=== PATIENT | female | born 1960 | race Caucasian/White ===

== ENCOUNTER 2016-03-20 04:38 | Emergency (ER) | payer MEDICARE, MEDICAID ==
[~2016-03-20 04:38] MED LIST: /ESCI20TA; /GLIM4TA; /WARF5TA; ACET500C; ACET50TAOT PO; AZOP0.2S OU; BONI150T PO; BONIVA; BUSP30TA; CALC12502; CLAR5CHW; COUM10TA; COUM1TAB17 PO; FERR325T; FERR325T3 PO; FLUO20CA9 PO; FURO40TA2 PO; GLIM4TAB PO; JANU100T PO; LASI40TA; LEVO112T25 PO; METF500T PO; METF500T4; PATA0.2S; PATA0.2S OU; RISP1TAB3 PO; SYNT88TA; TIMO0.5S; TIMO5OPD OU; TRAZ150T; VITA50003 PO; ZOCO20TA; ZOCO20TA PO; oxycodone
[2016-03-20 06:48] LABS: INR 1.58
[2016-03-20 06:51] LABS: CALCIUM LEVEL 9.2 MG/DL (8.5-10.1); CREATININE FOR GFR 1.18 MG/DL (0.55-1.02); GLOMERULAR FILTRATION RATE 50.1 (>51); POTASSIUM SERUM 4.3 MEQ/L (3.5-5.1)
[2016-03-20] MEDS ORDERED: FUROSEMIDE 20 MG TAB As Ordered ONE (08:03)
--- NOTE | 2016-03-20 08:31 | EDDOCDS ---
Physician Documentation [facility] Name: Shirley Martins Age: 56 yrs Sex: Female : 1960 Arrival Date: 03/20/2016 Time: 04:38 Bed 12 Private MD: Disposition: 03/20/16 08:04 Discharged to Home/Self Care. Impression: Edema, unspecified - Lower Extremities. - Condition is Stable. - Discharge Instructions: Edema. - Medication Reconciliation, Local Pharmacy Hours form. - Follow up: Sabino Parikh MD; When: 4 - 5 days; Reason: Recheck today's complaints. - Problem is new. - Symptoms are unchanged. - Notes: You were seen in the ED for swelling in the lower extremities. Bloodwork and ultrasound showed no acute findings. You were treated with a medicine to help get rid of excess fluid, and may follow up with your physician on Sunday for further care. Keep the legs elevated and wear compression stockings as well. Return to the ED for any chest pain, shortness of breath, passing out, or any other concerns. Historical: - Allergies: SULFA (SULFONAMIDES) (Rash); alfagon eye drops (eyes get red and itch); travatan eye drops (Swelling, eyes itch); - Home Meds: 1. warfarin 5mg daily accept is 7mg Oral tab 1 tab once daily (Last dose: 03/19/2016) 2. levothyroxine 112 mcg Oral tab 1 tab once daily (Last dose: 03/19/2016) 3. Risperdal 1 mg Oral tab 2 times per day (Last dose: 03/19/2016) 4. fluoxetine 20 mg oral cap 3 caps once daily (Last dose: 03/19/2016) 5. trazodone 100 mg Oral tab 2 tabs nightly (Last dose: 03/19/2016) 6. ferrous sulfate 325 mg (65 mg iron) Oral TbEC daily (Last dose: 03/19/2016) 7. vit d 27815 u weekly 8. Zocor 20 mg Oral tab 1 tab nightly (Last dose: 03/19/2016) 9. timolol maleate 0.5 % Opht drpd 1 drop 2 times per day 10. calcium 1000 mh 11. Patanol 0.1 % Opht drop 1 drop 2 times per day 12. magnesium oxide 500 mg Oral cap daily 13. Flomax 0.4 mg Oral cp24 1 cap once daily 14. Boniva 150 mg oral tab 1 tab once moly 15. potassium citrate er 10 meq twice a day - PMHx: Depression; Diabetes - IDDM: controlled; Hypercholesterolemia; low iron; Thyroid problem; - PSHx: wrist surgery for fracture; Appendectomy; Tonsillectomy; - Social history: Smoking status: Patient states was never smoker of tobacco. No barriers to communication noted, The patient speaks fluent Icelandic, Speaks appropriately for age. - Family history: Not pertinent. - : The pt / caregiver states he / she is on anticoagulants: coumadin. Home medication list is obtained from the patient, [employer] import data. - Exposure Risk Screening:: None identified. Vital Signs: 03/20 04:55 BP 148 / 73; Pulse 58; Resp 18; Temp 97.1(O); Pulse Ox 95% ; Weight 125.65 kg / 277.01 kmg1 lbs (R); Height 5 ft. 3 in. (160.02 cm) (R); Pain 4/10; 08:29 BP 163 / 70; Pulse 66; Resp 16; Temp 97.8; jmk 04:55 Body Mass Index 49.07 (125.65 kg, 160.02 cm) kmg1 MDM: 06:27 BMP Ordered. EDMS 06:27 PT/INR Ordered. EDMS 06:54 BMP Reviewed. mm11 06:54 PT/INR Reviewed. mm11 07:34 Duplex, Ext LOWER veins, bilat Ordered. EDMS 07:55 Financial registration complete. mm15 08:02 Furosemide 40 mg PO once ordered. br1 08:24 [facility] Payment Agreement was scanned into [employer] and attached to record. mm15 Administered Medications: 08:05 Drug: Furosemide 40 mg [furosemide 20 mg tablet (2 tabs)] Route: PO; chyna Signatures: Dispatcher [employer] EDMS Nisha Perez RN RN kmg1 Steve Dean RN RN jmk Maynard, Matthew, DO DO mm11 Jean Paul Cardoso MD MD br1 Patrick Oviedo mm15 Brynn Hope RN RN mlc The chart was reviewed and I authenticate all verbal orders and agree with the evaluation and treatment provided.Corrections: (The following items were deleted from the chart) 07:34 06:27 Duplex, Ext,LOWER veins,unilat+US ordered. EDMS EDMS Attachments: 08:24 [facility] [place] Payment Agreement mm15 MTDD
--- NOTE | 2016-03-20 08:32 | EDDOCDS ---
Nurse's Notes [facility] Name: Shirley Martins Age: 56 yrs Sex: Female : 1960 Arrival Date: 03/20/2016 Time: 04:38 Bed 12 Private MD: Diagnosis: Edema, unspecified-Lower Extremities Presentation: 03/20 04:42 Presenting complaint: Patient states: Legs and feet are swollen and sore. Swelling kmg1 started 3 weeks ago and pain began this week. Appointment with PCP this Sunday. Suicide/Homicide risk assessment- the patient denies having any suicidal and/or homicidal ideations and does not present with any other emotional, behavioral or mental health complaints. Status: Patient is not a customer services supervisor or dependent. Transition of care: patient was not received from another setting of care. 04:42 Acuity: JANET Level 4 km 04:42 Method Of Arrival: Walkin/Carried/Asstd km Triage Assessment: 04:55 General: Appears in no apparent distress, comfortable, Behavior is appropriate for age, kmg1 cooperative, pleasant. Pain: Location: right lane and left lane Pain currently is 4 out of 10 on a pain scale. At worst was 8 out of 10 on a pain scale. Quality of pain is described as aching, dull. HIV screening NA for this visit Offered previously. Neurological: Level of Consciousness is awake, alert. Respiratory: Airway is patent Respiratory effort is even, unlabored, Respiratory pattern is regular, symmetrical. Historical: - Allergies: SULFA (SULFONAMIDES) (Rash); alfagon eye drops (eyes get red and itch); travatan eye drops (Swelling, eyes itch); - Home Meds: 1. warfarin 5mg daily accept is 7mg Oral tab 1 tab once daily (Last dose: 03/19/2016) 2. levothyroxine 112 mcg Oral tab 1 tab once daily (Last dose: 03/19/2016) 3. Risperdal 1 mg Oral tab 2 times per day (Last dose: 03/19/2016) 4. fluoxetine 20 mg oral cap 3 caps once daily (Last dose: 03/19/2016) 5. trazodone 100 mg Oral tab 2 tabs nightly (Last dose: 03/19/2016) 6. ferrous sulfate 325 mg (65 mg iron) Oral TbEC daily (Last dose: 03/19/2016) 7. vit d 41645 u weekly 8. Zocor 20 mg Oral tab 1 tab nightly (Last dose: 03/19/2016) 9. timolol maleate 0.5 % Opht drpd 1 drop 2 times per day 10. calcium 1000 mh 11. Patanol 0.1 % Opht drop 1 drop 2 times per day 12. magnesium oxide 500 mg Oral cap daily 13. Flomax 0.4 mg Oral cp24 1 cap once daily 14. Boniva 150 mg oral tab 1 tab once moly 15. potassium citrate er 10 meq twice a day - PMHx: Depression; Diabetes - IDDM: controlled; Hypercholesterolemia; low iron; Thyroid problem; - PSHx: wrist surgery for fracture; Appendectomy; Tonsillectomy; - Social history: Smoking status: Patient states was never smoker of tobacco. No barriers to communication noted, The patient speaks fluent Romanian, Speaks appropriately for age. - Family history: Not pertinent. - : The pt / caregiver states he / she is on anticoagulants: coumadin. Home medication list is obtained from the patient, [employer] import data. - Exposure Risk Screening:: None identified. Screenin:41 Screening information is obtained from the patient. Fall risk: No risks identified. mlc 05:45 Assistance ADL's: requires no assistance with activities of daily living. Abuse/DV mlc Screen: The patient / caregiver reports he/she is: not in a situation that causes fear, pain or injury. Nutritional screening: No deficits noted. Advance Directives: Currently, there is a health care proxy, Francesca Martins, brother and Miriam Morse, sister. There is no active DNR order. There is no living will. There is no Power of Junior Account Manager. home support is adequate. Assessment: 05:41 General: Appears in no apparent distress, comfortable, Behavior is cooperative, mlc pleasant. Pain: Location: right foot, left foot, right leg and left leg Pain currently is 4 out of 10 on a pain scale. Neurological: Level of Consciousness is awake, obeys commands, Oriented to person, place, time. Cardiovascular: Heart tones S1 S2 present. Cardiovascular: Edema is 2+ to left midcalf, left ankle, right midcalf and right ankle Pulses are all present. Respiratory: Airway is patent Respiratory effort is even, unlabored, Respiratory pattern is regular, Breath sounds are clear bilaterally. Derm:. 06:33 Reassessment: Patient appears in no apparent distress at this time. Blood work obtained [facility] [place] . 07:24 General: Appears Appears NAD. returned from ultrasound. ambulating about room with jmk steady gait. both lower legs with swelling to mid calf. without redness or ecchymosis or increased warmth. reluctantly admits to sitting for long periods of time., and consuming diet pepsi as beverage of choice.. 08:29 General: tolerant of activity. receptive to discharge. [facility] Vital Signs: 04:55 BP 148 / 73; Pulse 58; Resp 18; Temp 97.1(O); Pulse Ox 95% ; Weight 125.65 kg (R); [facility] Height 5 ft. 3 in. (160.02 cm) (R); Pain 4/10; 08:29 BP 163 / 70; Pulse 66; Resp 16; Temp 97.8; jmk 04:55 Body Mass Index 49.07 (125.65 kg, 160.02 cm) [facility] Vitals: 04:55 Log In Time: March 20, 2016 at 04:37. [facility] ED Course: 04:39 Patient visited by Dee Duncan. gjb 04:39 Patient moved to Waiting gjb 04:43 Triage Initiated kmg1 05:02 Brynn Hope RN is Primary Nurse. kmg1 05:02 Patient moved to 12 km 05:43 Patient visited by Brynn Hope RN. mlc 06:09 Milind Flood DO is Attending Physician. mm11 06:10 Patient visited by Milind Flood DO. mm11 06:25 Patient visited by Milind Flood DO. mm11 06:33 Patient visited by Brynn Hope RN. mlc 06:33 PT/INR Sent. mlc 06:33 BMP Sent. mlc 06:57 Patient moved to Ultrasound ssc 07:23 Primary Nurse role handed off by Brynn Hope RN deg 07:23 Patient moved to 12 ssc 07:54 Patient visited by Ruby Haddad PCA. ct3 07:59 Attending Physician role handed off by Milind Flood DO br1 07:59 Jean Paul Cardoso MD is Attending Physician. br1 08:01 Patient visited by Jean Paul Cardoso MD. br1 08:03 Sabino Parikh MD is Referral Physician. br1 08:24 [facility] [place] Payment Agreement was scanned into [employer] and attached to record. mm15 08:29 The patient / caregiver is instructed regarding the plan of care and ED course. jmk 08:29 No IV's were initiated during this patient's visit. No procedures done that require [facility] assistance. Administered Medications: 08:05 Drug: Furosemide 40 mg [furosemide 20 mg tablet (2 tabs)] Route: PO; k Order Results: Lab Order: BMP; SPEC'M 03/20/16 06:29 Test: GLUCOSE, FASTING; Value: 144; Range: 70-105; Abnormal: Above high normal; Units: MG/DL; Status: F Test: BLOOD UREA NITROGEN; Value: 15; Range: 7-18; Units: MG/DL; Status: F Test: CREATININE FOR GFR; Value: 1.18; Range: 0.55-1.02; Abnormal: Above high normal; Units: MG/DL; Status: F Test: GLOMERULAR FILTRATION RATE; Value: 50.1; Range: >51; Abnormal: Below low normal; Status: F Test: SODIUM LEVEL; Value: 143; Range: 136-145; Units: MEQ/L; Status: F Test: POTASSIUM SERUM; Value: 4.3; Range: 3.5-5.1; Units: MEQ/L; Status: F Test: CHLORIDE LEVEL; Value: 105; Range: 98-107; Units: MEQ/L; Status: F Test: CARBON DIOXIDE LEVEL; Value: 29; Range: 21-32; Units: MEQ/L; Status: F Test: ANION GAP; Value: 9; Range: 8-16; Units: MEQ/L; Status: F Test: CALCIUM LEVEL; Value: 9.2; Range: 8.5-10.1; Units: MG/DL; Status: F Test Note: ; Units are mL/min/1.73 m2 Chronic Kidney Disease Staging per NKF: Stage I & II GFR >=60 Normal to Mildly Decreased Stage III GFR 30-59 Moderately Decreased Stage IV GFR 15-29 Severely Decreased Stage V GFR <15 Very Little GFR Left ESRD GFR <15 on [employer] Lab Order: PT/INR; SPEC'M 01/09/17 06:29 Test: PROTHROMBIN TIME; Value: 19.0; Range: 12.3-14.5; Abnormal: Above high normal; Units: SECONDS; Status: F Test: INR; Value: 1.58; Status: F Test Note: ; THERAPUTIC HUMAN INR VALUES INDICATIONS NORMAL RANGES PROPHYLAXIS/TREATMENT OF: VENOUS THROMBOSIS 2.0-3.0 PULMONARY EMBOLISM 2.0-3.0 PREVENTION OF SYSTEMIC EMBOLISM FROM: TISSUE HEART VALVES 2.0-3.0 ACUTE MYOCARDIAL INFARCTION 2.0-3.0 VALVULAR HEART DISEASE 2.0-3.0 ATRIAL FIBRILLATION 2.0-3.0 MECHANICAL VALVES(HIGH RISK) 2.5-3.5 RECURRENT MYOCARDIAL INFARCTION 2.5-3.5 Outcome: 08:04 Discharge ordered by Provider. br1 08:29 Discharge Assessment: Patient awake, alert and oriented x 3. No cognitive and/or jmk functional deficits noted. Patient verbalized understanding of disposition instructions. patient administered narcotics - no. The following High Risk Discharge criteria are identified: None. Discharged to home ambulatory. Condition: good. Discharge instructions given to patient, Instructed on discharge instructions, follow up and referral plans. medication usage, Demonstrated understanding of instructions, medications, Pt was receptive of discharge instructions/ teaching. No special radiology studies were completed. Property :Personal belongings accompany Pt. 08:31 Patient left the ED. chyna Signatures: Ella Castellon, Creative Technologist Unit deg Nisha Perez, RN RN kmg1 Steve Dean,RN RN gladisk Zhang Baca Matthew, DO DO mm11 Jean Paul Cardoso MD MD br1 Ruby Haddad, WANDA PROFESSOR OF LEGAL STUDIES ct3 Patrick Oviedo mm15 Brynn Hope,SUE RN Dee Lnae MTDD
--- NOTE | 2016-03-20 09:18 | REP ---
BILATERAL LOWER EXTREMITY VENOUS DOPPLER 03/20/16: INDICATION: Bilateral leg pain, history of DVT, on Coumadin COMPARISON: Left lower extremity venous Doppler 09/27/2006 RIGHT LOWER EXTREMITY FINDINGS: Color-flow, spectral wave, and sanders scale imaging were used to evaluate the right lower extremity veins at common femoral, superficial femoral and popliteal venous levels. There is normal compressibility of veins at the above stated levels. There is normal response to augmentation of flow. The profunda femoris vein is also patent. IMPRESSION: No evidence of DVT in the right lower extremity. LEFT LOWER EXTREMITY VENOUS DOPPLER: Color-flow, spectral wave, and sanders scale imaging were used to evaluate the lower extremity veins at common femoral, superficial femoral and popliteal venous levels. There is normal compressibility of veins at the above stated levels. There is normal response to augmentation of flow. The profunda femoris vein is also patent. IMPRESSION: No evidence of DVT in the left lower extremity. Signed by Maria R Early MD 03/20/2016 05:15 P
--- NOTE | 2016-03-22 09:32 | EDDOCDS ---
Nurse's Notes [facility] Name: Shirley Martins Age: 56 yrs Sex: Female : 1960 Arrival Date: 03/20/2016 Time: 04:38 Bed 12 Private MD: Diagnosis: Edema, unspecified-Lower Extremities Presentation: 03/20 04:42 Presenting complaint: Patient states: Legs and feet are swollen and sore. Swelling kmg1 started 3 weeks ago and pain began this week. Appointment with PCP this Sunday. Suicide/Homicide risk assessment- the patient denies having any suicidal and/or homicidal ideations and does not present with any other emotional, behavioral or mental health complaints. Status: Patient is not a therapeutic activities services worker or dependent. Transition of care: patient was not received from another setting of care. 04:42 Acuity: JANET Level 4 km 04:42 Method Of Arrival: Walkin/Carried/Asstd km Triage Assessment: 04:55 General: Appears in no apparent distress, comfortable, Behavior is appropriate for age, kmg1 cooperative, pleasant. Pain: Location: right lane and left lane Pain currently is 4 out of 10 on a pain scale. At worst was 8 out of 10 on a pain scale. Quality of pain is described as aching, dull. HIV screening NA for this visit Offered previously. Neurological: Level of Consciousness is awake, alert. Respiratory: Airway is patent Respiratory effort is even, unlabored, Respiratory pattern is regular, symmetrical. Historical: - Allergies: SULFA (SULFONAMIDES) (Rash); alfagon eye drops (eyes get red and itch); travatan eye drops (Swelling, eyes itch); - Home Meds: 1. warfarin 5mg daily accept is 7mg Oral tab 1 tab once daily (Last dose: 03/19/2016) 2. levothyroxine 112 mcg Oral tab 1 tab once daily (Last dose: 03/19/2016) 3. Risperdal 1 mg Oral tab 2 times per day (Last dose: 03/19/2016) 4. fluoxetine 20 mg oral cap 3 caps once daily (Last dose: 03/19/2016) 5. trazodone 100 mg Oral tab 2 tabs nightly (Last dose: 03/19/2016) 6. ferrous sulfate 325 mg (65 mg iron) Oral TbEC daily (Last dose: 03/19/2016) 7. vit d 23759 u weekly 8. Zocor 20 mg Oral tab 1 tab nightly (Last dose: 03/19/2016) 9. timolol maleate 0.5 % Opht drpd 1 drop 2 times per day 10. calcium 1000 mh 11. Patanol 0.1 % Opht drop 1 drop 2 times per day 12. magnesium oxide 500 mg Oral cap daily 13. Flomax 0.4 mg Oral cp24 1 cap once daily 14. Boniva 150 mg oral tab 1 tab once moly 15. potassium citrate er 10 meq twice a day - PMHx: Depression; Diabetes - IDDM: controlled; Hypercholesterolemia; low iron; Thyroid problem; - PSHx: wrist surgery for fracture; Appendectomy; Tonsillectomy; - Social history: Smoking status: Patient states was never smoker of tobacco. No barriers to communication noted, The patient speaks fluent Belgian, Speaks appropriately for age. - Family history: Not pertinent. - : The pt / caregiver states he / she is on anticoagulants: coumadin. Home medication list is obtained from the patient, [employer] import data. - Exposure Risk Screening:: None identified. Screenin:41 Screening information is obtained from the patient. Fall risk: No risks identified. mlc 05:45 Assistance ADL's: requires no assistance with activities of daily living. Abuse/DV mlc Screen: The patient / caregiver reports he/she is: not in a situation that causes fear, pain or injury. Nutritional screening: No deficits noted. Advance Directives: Currently, there is a health care proxy, Francesca Martins, brother and Miriam Morse, sister. There is no active DNR order. There is no living will. There is no Power of Director Of Materials Management. home support is adequate. Assessment: 05:41 General: Appears in no apparent distress, comfortable, Behavior is cooperative, mlc pleasant. Pain: Location: right foot, left foot, right leg and left leg Pain currently is 4 out of 10 on a pain scale. Neurological: Level of Consciousness is awake, obeys commands, Oriented to person, place, time. Cardiovascular: Heart tones S1 S2 present. Cardiovascular: Edema is 2+ to left midcalf, left ankle, right midcalf and right ankle Pulses are all present. Respiratory: Airway is patent Respiratory effort is even, unlabored, Respiratory pattern is regular, Breath sounds are clear bilaterally. Derm:. 06:33 Reassessment: Patient appears in no apparent distress at this time. Blood work obtained [facility] . 07:24 General: Appears Appears NAD. returned from ultrasound. ambulating about room with jmk steady gait. both lower legs with swelling to mid calf. without redness or ecchymosis or increased warmth. reluctantly admits to sitting for long periods of time., and consuming diet pepsi as beverage of choice.. 08:29 General: tolerant of activity. receptive to discharge. [facility] Vital Signs: 04:55 BP 148 / 73; Pulse 58; Resp 18; Temp 97.1(O); Pulse Ox 95% ; Weight 125.65 kg (R); [facility] [place] 5 ft. 3 in. (160.02 cm) (R); Pain 4/10; 08:29 BP 163 / 70; Pulse 66; Resp 16; Temp 97.8; jmk 04:55 Body Mass Index 49.07 (125.65 kg, 160.02 cm) [facility] Vitals: 04:55 Log In Time: March 20, 2016 at 04:37. [facility] [place] Course: 04:39 Patient visited by Dee Duncan. gjb 04:39 Patient moved to Waiting gjb 04:43 Triage Initiated kmg1 05:02 Brynn Hope RN is Primary Nurse. kmg1 05:02 Patient moved to 12 km 05:43 Patient visited by Brynn Hope RN. mlc 06:09 Milind Flood DO is Attending Physician. mm11 06:10 Patient visited by Milind Flood DO. mm11 06:25 Patient visited by Milind Flood DO. mm11 06:33 Patient visited by Brynn Hope RN. mlc 06:33 PT/INR Sent. mlc 06:33 BMP Sent. mlc 06:57 Patient moved to Ultrasound ssc 07:23 Primary Nurse role handed off by Brynn Hope RN deg 07:23 Patient moved to 12 ssc 07:54 Patient visited by Ruby Haddad PCA. ct3 07:59 Attending Physician role handed off by Milind Flood DO br1 07:59 Jean Paul Cardoso MD is Attending Physician. br1 08:01 Patient visited by Jean Paul Cardoso MD. br1 08:03 Sabino Parikh MD is Referral Physician. br1 08:24 [facility] [place] was scanned into [employer] and attached to record. mm15 08:29 The patient / caregiver is instructed regarding the plan of care and ED course. jmk 08:29 No IV's were initiated during this patient's visit. No procedures done that require k assistance. 08:52 Patient name changed from Shirley\S\\S\Martins\S\ to Shirley\S\ \S\Martins. EDMS 09:23 Duplex, Ext LOWER veins, bilat Returned. EDMS 13:11 T-Sheet-- Draft Copy was scanned into [employer] and attached to record. gb 13:12 Radiology Report was scanned into [employer] and attached to record. gb Administered Medications: 08:05 Drug: Furosemide 40 mg [furosemide 20 mg tablet (2 tabs)] Route: PO; jmk Order Results: Lab Order: BMP; SPEC'M 03/20/16 06:29 Test: GLUCOSE, FASTING; Value: 144; Range: 70-105; Abnormal: Above high normal; Units: MG/DL; Status: F Test: BLOOD UREA NITROGEN; Value: 15; Range: 7-18; Units: MG/DL; Status: F Test: CREATININE FOR GFR; Value: 1.18; Range: 0.55-1.02; Abnormal: Above high normal; Units: MG/DL; Status: F Test: GLOMERULAR FILTRATION RATE; Value: 50.1; Range: >51; Abnormal: Below low normal; Status: F Test: SODIUM LEVEL; Value: 143; Range: 136-145; Units: MEQ/L; Status: F Test: POTASSIUM SERUM; Value: 4.3; Range: 3.5-5.1; Units: MEQ/L; Status: F Test: CHLORIDE LEVEL; Value: 105; Range: 98-107; Units: MEQ/L; Status: F Test: CARBON DIOXIDE LEVEL; Value: 29; Range: 21-32; Units: MEQ/L; Status: F Test: ANION GAP; Value: 9; Range: 8-16; Units: MEQ/L; Status: F Test: CALCIUM LEVEL; Value: 9.2; Range: 8.5-10.1; Units: MG/DL; Status: F Test Note: ; Units are mL/min/1.73 m2 Chronic Kidney Disease Staging per NKF: Stage I & II GFR >=60 Normal to Mildly Decreased Stage III GFR 30-59 Moderately Decreased Stage IV GFR 15-29 Severely Decreased Stage V GFR <15 Very Little GFR Left ESRD GFR <15 on CLINICAL PHARMACY MANAGER Lab Order: PT/INR; SPEC'M 03/20/16 06:29 Test: PROTHROMBIN TIME; Value: 19.0; Range: 12.3-14.5; Abnormal: Above high normal; Units: SECONDS; Status: F Test: INR; Value: 1.58; Status: F Test Note: ; THERAPUTIC HUMAN INR VALUES INDICATIONS NORMAL RANGES PROPHYLAXIS/TREATMENT OF: VENOUS THROMBOSIS 2.0-3.0 PULMONARY EMBOLISM 2.0-3.0 PREVENTION OF SYSTEMIC EMBOLISM FROM: TISSUE HEART VALVES 2.0-3.0 ACUTE MYOCARDIAL INFARCTION 2.0-3.0 VALVULAR HEART DISEASE 2.0-3.0 ATRIAL FIBRILLATION 2.0-3.0 MECHANICAL VALVES(HIGH RISK) 2.5-3.5 RECURRENT MYOCARDIAL INFARCTION 2.5-3.5 Radiology Order: Duplex, Ext LOWER veins, bilat Test: Duplex, Ext LOWER veins, bilat REASON FOR EXAMINATION: Deformity/Swelling; BILATERAL LOWER EXTREMITY VENOUS DOPPLER 03/20/16:; ; INDICATION: Bilateral leg pain, history of DVT, on Coumadin; ; COMPARISON: Left lower extremity venous Doppler 09/27/2006; ; RIGHT LOWER EXTREMITY FINDINGS:; ; Color-flow, spectral wave, and sanders scale imaging were used to evaluate the right; lower extremity veins at common femoral, superficial femoral and popliteal; venous levels. There is normal compressibility of veins at the above stated; levels. There is normal response to augmentation of flow. The profunda femoris; vein is also patent.; ; IMPRESSION:; ; No evidence of DVT in the right lower extremity.; ; ; ; LEFT LOWER EXTREMITY VENOUS DOPPLER:; ; Color-flow, spectral wave, and sanders scale imaging were used to evaluate the lower; extremity veins at common femoral, superficial femoral and popliteal venous; levels. There is normal compressibility of veins at the above stated levels.; There is normal response to augmentation of flow. The profunda femoris vein is; also patent.; ; IMPRESSION:; ; No evidence of DVT in the left lower extremity.; ; ; ; ; Signed by; Maria R Early MD 03/20/2016 05:15 P; Outcome: 08:04 Discharge ordered by Provider. br1 08:29 Discharge Assessment: Patient awake, alert and oriented x 3. No cognitive and/or jmk functional deficits noted. Patient verbalized understanding of disposition instructions. patient administered narcotics - no. The following High Risk Discharge criteria are identified: None. Discharged to home ambulatory. Condition: good. Discharge instructions given to patient, Instructed on discharge instructions, follow up and referral plans. medication usage, Demonstrated understanding of instructions, medications, Pt was receptive of discharge instructions/ teaching. No special radiology studies were completed. Property :Personal belongings accompany Pt. 08:31 Patient left the ED. chyna Signatures: Dispatcher [employer] EDMS Ella Castellon, Reference Data Expert Unit deg Nisha Perez, RN RN kmg1 Steve DeanRN RN jmk Zhang Baca Gloria, Reg Reg gb Milind Flood, DO mm11 Jean Paul Cardoso MD MD br1 Ruby Haddad, WANDA MICROFILM CLERK ct3 Patrick Oviedo mm15 Brynn Hope,SUE RN Dee Lane Chart Complete MTDD
--- NOTE | 2016-03-22 09:32 | EDDOCDS ---
Physician Documentation [facility] Name: Shirley Martins Age: 56 yrs Sex: Female : 1960 Arrival Date: 03/20/2016 Time: 04:38 Bed 12 Private MD: Disposition: 03/20/16 08:04 Discharged to Home/Self Care. Impression: Edema, unspecified - Lower Extremities. - Condition is Stable. - Discharge Instructions: Edema. - Medication Reconciliation, Local Pharmacy Hours form. - Follow up: Sabino Parikh MD; When: 4 - 5 days; Reason: Recheck today's complaints. - Problem is new. - Symptoms are unchanged. - Notes: You were seen in the ED for swelling in the lower extremities. Bloodwork and ultrasound showed no acute findings. You were treated with a medicine to help get rid of excess fluid, and may follow up with your physician on Sunday for further care. Keep the legs elevated and wear compression stockings as well. Return to the ED for any chest pain, shortness of breath, passing out, or any other concerns. Historical: - Allergies: SULFA (SULFONAMIDES) (Rash); alfagon eye drops (eyes get red and itch); travatan eye drops (Swelling, eyes itch); - Home Meds: 1. warfarin 5mg daily accept is 7mg Oral tab 1 tab once daily (Last dose: 03/19/2016) 2. levothyroxine 112 mcg Oral tab 1 tab once daily (Last dose: 03/19/2016) 3. Risperdal 1 mg Oral tab 2 times per day (Last dose: 03/19/2016) 4. fluoxetine 20 mg oral cap 3 caps once daily (Last dose: 03/19/2016) 5. trazodone 100 mg Oral tab 2 tabs nightly (Last dose: 03/19/2016) 6. ferrous sulfate 325 mg (65 mg iron) Oral TbEC daily (Last dose: 03/19/2016) 7. vit d 14786 u weekly 8. Zocor 20 mg Oral tab 1 tab nightly (Last dose: 03/19/2016) 9. timolol maleate 0.5 % Opht drpd 1 drop 2 times per day 10. calcium 1000 mh 11. Patanol 0.1 % Opht drop 1 drop 2 times per day 12. magnesium oxide 500 mg Oral cap daily 13. Flomax 0.4 mg Oral cp24 1 cap once daily 14. Boniva 150 mg oral tab 1 tab once moly 15. potassium citrate er 10 meq twice a day - PMHx: Depression; Diabetes - IDDM: controlled; Hypercholesterolemia; low iron; Thyroid problem; - PSHx: wrist surgery for fracture; Appendectomy; Tonsillectomy; - Social history: Smoking status: Patient states was never smoker of tobacco. No barriers to communication noted, The patient speaks fluent Slovenian, Speaks appropriately for age. - Family history: Not pertinent. - : The pt / caregiver states he / she is on anticoagulants: coumadin. Home medication list is obtained from the patient, [employer] import data. - Exposure Risk Screening:: None identified. Vital Signs: 03/20 04:55 BP 148 / 73; Pulse 58; Resp 18; Temp 97.1(O); Pulse Ox 95% ; Weight 125.65 kg / 277.01 kmg1 lbs (R); Height 5 ft. 3 in. (160.02 cm) (R); Pain 4/10; 08:29 BP 163 / 70; Pulse 66; Resp 16; Temp 97.8; jmk 04:55 Body Mass Index 49.07 (125.65 kg, 160.02 cm) kmg1 MDM: 06:27 BMP Ordered. EDMS 06:27 PT/INR Ordered. EDMS 06:54 BMP Reviewed. mm11 06:54 PT/INR Reviewed. mm11 07:34 Duplex, Ext LOWER veins, bilat Ordered. EDMS 07:55 Financial registration complete. mm15 08:02 Furosemide 40 mg PO once ordered. br1 08:24 [facility] Payment Agreement was scanned into [employer] and attached to record. mm15 13:11 T-Sheet-- Draft Copy was scanned into [employer] and attached to record. gb 13:12 Radiology Report was scanned into [employer] and attached to record. gb Administered Medications: 08:05 Drug: Furosemide 40 mg [furosemide 20 mg tablet (2 tabs)] Route: PO; chyna Signatures: Dispatcher [employer] EDMS Nisha Perez RN RN kmg1 Steve Dean RN RN gladisk Carlie Covington, Reg Reg gb Milind Flood, DO DO mm11 Jean Paul Cardoso MD MD br1 Patrick Oviedo mm15 Brynn Hope,RN RN mlc The chart was reviewed and I authenticate all verbal orders and agree with the evaluation and treatment provided.Corrections: (The following items were deleted from the chart) 07:34 06:27 Duplex, Ext,LOWER veins,unilat+US ordered. EDMS EDMS Attachments: 08:24 [place] Payment Agreement mm15 13:11 T-Sheet-- Draft Copy gb Chart Complete MTDD
--- NOTE | 2016-03-22 09:32 | EDDOCDS ---
Physician Documentation [facility] Name: Shirley Martins Age: 56 yrs Sex: Female : 1960 Arrival Date: 03/20/2016 Time: 04:38 Bed 12 Private MD: Disposition: 03/20/16 08:04 Discharged to Home/Self Care. Impression: Edema, unspecified - Lower Extremities. - Condition is Stable. - Discharge Instructions: Edema. - Medication Reconciliation, Local Pharmacy Hours form. - Follow up: Sabino Parikh MD; When: 4 - 5 days; Reason: Recheck today's complaints. - Problem is new. - Symptoms are unchanged. - Notes: You were seen in the ED for swelling in the lower extremities. Bloodwork and ultrasound showed no acute findings. You were treated with a medicine to help get rid of excess fluid, and may follow up with your physician on Sunday for further care. Keep the legs elevated and wear compression stockings as well. Return to the ED for any chest pain, shortness of breath, passing out, or any other concerns. Historical: - Allergies: SULFA (SULFONAMIDES) (Rash); alfagon eye drops (eyes get red and itch); travatan eye drops (Swelling, eyes itch); - Home Meds: 1. warfarin 5mg daily accept is 7mg Oral tab 1 tab once daily (Last dose: 03/19/2016) 2. levothyroxine 112 mcg Oral tab 1 tab once daily (Last dose: 03/19/2016) 3. Risperdal 1 mg Oral tab 2 times per day (Last dose: 03/19/2016) 4. fluoxetine 20 mg oral cap 3 caps once daily (Last dose: 03/19/2016) 5. trazodone 100 mg Oral tab 2 tabs nightly (Last dose: 03/19/2016) 6. ferrous sulfate 325 mg (65 mg iron) Oral TbEC daily (Last dose: 03/19/2016) 7. [place] d 38407 u weekly 8. Zocor 20 mg Oral tab 1 tab nightly (Last dose: 03/19/2016) 9. timolol maleate 0.5 % Opht drpd 1 drop 2 times per day 10. calcium 1000 mh 11. Patanol 0.1 % Opht drop 1 drop 2 times per day 12. magnesium oxide 500 mg Oral cap daily 13. Flomax 0.4 mg Oral cp24 1 cap once daily 14. Boniva 150 mg oral tab 1 tab once moly 15. potassium citrate er 10 meq twice a day - PMHx: Depression; Diabetes - IDDM: controlled; Hypercholesterolemia; low iron; Thyroid problem; - PSHx: wrist surgery for fracture; Appendectomy; Tonsillectomy; - Social history: Smoking status: Patient states was never smoker of tobacco. No barriers to communication noted, The patient speaks fluent Armenian, Speaks appropriately for age. - Family history: Not pertinent. - : The pt / caregiver states he / she is on anticoagulants: coumadin. Home medication list is obtained from the patient, [employer] import data. - Exposure Risk Screening:: None identified. Vital Signs: 03/20 04:55 BP 148 / 73; Pulse 58; Resp 18; Temp 97.1(O); Pulse Ox 95% ; Weight 125.65 kg / 277.01 kmg1 lbs (R); Height 5 ft. 3 in. (160.02 cm) (R); Pain 4/10; 08:29 BP 163 / 70; Pulse 66; Resp 16; Temp 97.8; jmk 04:55 Body Mass Index 49.07 (125.65 kg, 160.02 cm) kmg1 MDM: 06:27 BMP Ordered. EDMS 06:27 PT/INR Ordered. EDMS 06:54 BMP Reviewed. mm11 06:54 PT/INR Reviewed. mm11 07:34 Duplex, Ext LOWER veins, bilat Ordered. EDMS 07:55 Financial registration complete. mm15 08:02 Furosemide 40 mg PO once ordered. br1 08:24 [facility] Payment Agreement was scanned into [employer] and attached to record. mm15 13:11 T-Sheet-- Draft Copy was scanned into [employer] and attached to record. gb 13:12 Radiology Report was scanned into [employer] and attached to record. gb Administered Medications: 08:05 Drug: Furosemide 40 mg [furosemide 20 mg tablet (2 tabs)] Route: PO; chyna Signatures: Dispatcher [employer] EDMS Nisha Perez RN RN kmg1 Steve Dean RN RN gladisk Carlie Covington, Reg Reg gb Milind Flood, DO DO mm11 Jean Paul Cardoso MD MD br1 Patrick Oviedo mm15 Brynn Hope,RN RN mlc The chart was reviewed and I authenticate all verbal orders and agree with the evaluation and treatment provided.Corrections: (The following items were deleted from the chart) 07:34 06:27 Duplex, Ext,LOWER veins,unilat+US ordered. EDMS EDMS Attachments: 08:24 [place] Payment Agreement mm15 13:11 T-Sheet-- Draft Copy gb Chart Complete MTDD
== END 2016-03-20 08:31 | disposition home or self-care (01) ==
LOC: M ED 04:38
DX: R60.0 Localized edema (principal); F32.9 Major depressive disorder, single episode, unspecified; E10.9 Type 1 diabetes mellitus without complications; E78.00 Pure hypercholesterolemia, unspecified; E07.9 Disorder of thyroid, unspecified; Z79.01 Long term (current) use of anticoagulants; Z79.899 Other long term (current) drug therapy; Z88.2 Allergy status to sulfonamides; Z88.8 Allergy status to other drugs, medicaments and biological substances

== ENCOUNTER → 2016-04-27 | Outpatient (REF) | payer MEDICARE, MEDICAID ==
[2016-04-27 12:51] LABS: BASO % 0.7 % (0.0-1.0); EOS # 0.3 K/mm3 (0.0-0.50); EOS % 3.8 % (0.0-3.0); LARGE UNSTAINED CELL # 0.3 K/mm3 (0.0-0.4); LYMPH # 1.1 K/mm3 (1.5-4.5); LYMPH % 15.6 % (24.0-44.0); MEAN CORPUSCULAR HGB CONC 32.9 g/dl (32.0-36.5); MONO # 0.4 K/mm3 (0.0-0.8); MONO % 5.8 % (0.0-5.0); NEUTROPHILS # 4.8 K/mm3 (1.8-7.7); NEUTROPHILS % 70.1 % (36.0-66.0); PLATELET COUNT, AUTOMATED 205 k/mm3 (150-450); RED CELL DISTRIBUTION WIDTH 13.1 % (11.5-14.5); WHITE BLOOD COUNT 6.8 K/mm3 (4.0-10.0)
[2016-04-27 13:01] LABS: INR 2.18
[2016-04-27 13:05] LABS: ALBUMIN 3.7 GM/DL (3.2-5.2); ALBUMIN/GLOBULIN RATIO 1.23 (1.00-1.93); BILIRUBIN,TOTAL 0.6 MG/DL (0.2-1.0); CALCIUM LEVEL 8.7 MG/DL (8.5-10.1); CREATININE FOR GFR 1.28 MG/DL (0.55-1.02); GLOMERULAR FILTRATION RATE 45.6 (>51); MAGNESIUM LEVEL 1.8 MG/DL (1.8-2.4); PERCENT SATURATION 18.1 % (13.2-37.4); POTASSIUM SERUM 4.3 MEQ/L (3.5-5.1); TOTAL PROTEIN 6.7 GM/DL (6.4-8.2)
== END ==
LOC: M SFHCPLAZ 12:10
PROVIDERS: ATTEND Family Medicine
DX: R60.9 Edema, unspecified (principal); D50.9 Iron deficiency anemia, unspecified; I82.409 Acute embolism and thrombosis of unspecified deep veins of unspecified lower extremity; N18.3 Chronic kidney disease, stage 3 (moderate); E11.9 Type 2 diabetes mellitus without complications

== ENCOUNTER → 2016-04-28 | Outpatient (CLI) | payer MEDICARE, MEDICAID ==
--- NOTE | 2016-04-28 13:36 | REPMRS ---
Patient History The patient states she has not had a clinical breast exam in over a year. Patient is postmenopausal and is nulliparous. Family history of colorectal cancer in father at age 50 or over. Digital Woman Screen Mammo: April 28, 2016 - Exam #: [id number] Bilateral CC and MLO view(s) were taken. Technologist: Delfina Holloway Technologist Prior study comparison: March 31, 2015, digital woman screen mammo performed at [facility] to [facility]. April 10, 2014, digital woman screen mammo performed at [facility] to [facility]. FINDINGS: There are scattered fibroglandular densities. There has been no change in the appearance of the mammogram from the prior studies. There is a mild amount of residual fibroglandular tissue which is fairly symmetric. There is no interval development of dominant mass, architectural distortion, or clustered microcalcification suggestive of malignancy. ASSESSMENT: BI-RADS/ACR category 1 mammogram. Negative. Recommendation Routine screening mammogram in 1 year (for women over age 40). This mammogram was interpreted with the aid of an FDA-approved computer-aided dectection system. Electronically Signed By: Demetrius Rojas MD 04/28/16 [id number]
--- NOTE | 2016-05-01 09:08 | DEXA ---
AP SPINE L1 - L4 1.048 -1.2 -1.3 LT FEMUR TOTAL 0.926 -0.7 -0.7 RT FEMUR TOTAL 1.007 0.0 0.0 TOTAL BODY TOTAL OTHER DUAL FEMUR FRAX* ASSESSMENT Risk factors: Adult history fracture, insulin-dependent diabetic. 10 year probability of fracture Major osteoporotic fracture 11.5 % Hip fracture 1.0 % COMMENTS: There is low bone density of the spine and hips. The increased density of the spine does not represent a significant change. The decreased density of the left hip does represent a significant change. The increased density of the right hip does represent a significant change. The density of the spine has increased 24.5% since the initial exam on 2004. The spine density has increased 0.2% since the most recent exam on 04/10/2014. The density of the left hip has decreased 8.1% since the initial exam on 2004. The density of the left hip has decreased 3.5% since the most recent exam on . The density of the right hip has decreased 0.4% since the initial exam on 2004. The density of the right hip has increased 4.8% since the most recent exam on . FOLLOW-UP: Recommendation for the next bone density exam: 2 years. LENO
== END ==
LOC: M WHC 10:53
PROVIDERS: ATTEND Family Medicine
DX: Z12.31 Encounter for screening mammogram for malignant neoplasm of breast (principal); E55.9 Vitamin D deficiency, unspecified
CPT/HCPCS: 77080; G0202

== ENCOUNTER → 2016-08-21 | Outpatient (REF) | payer MEDICARE, MEDICAID ==
[~2016-08-21] MED LIST changes: +FLUO20CA19 PO; -FLUO20CA9 PO; -METF500T PO; +METF500T13 PO; +VITA1CAP40 PO; -VITA50003 PO
[2016-08-21 15:57] LABS: BASO # 0.1 K/mm3 (0.0-0.2); BASO % 1.1 % (0.0-1.0); EOS # 0.2 K/mm3 (0.0-0.50); EOS % 3.4 % (0.0-3.0); LARGE UNSTAINED CELL # 0.2 K/mm3 (0.0-0.4); LARGE UNSTAINED CELL % 2.2 % (0.0-4.0); LYMPH # 1.6 K/mm3 (1.5-4.5); LYMPH % 21.4 % (24.0-44.0); MEAN CORPUSCULAR HEMOGLOBIN 32.8 pg (27.0-33.0); MEAN CORPUSCULAR HGB CONC 34.5 g/dl (32.0-36.5); MEAN CORPUSCULAR VOLUME 95.1 fl (80.0-96.0); MONO # 0.4 K/mm3 (0.0-0.8); MONO % 5.6 % (0.0-5.0); NEUTROPHILS # 4.6 K/mm3 (1.8-7.7); NEUTROPHILS % 66.3 % (36.0-66.0); PLATELET COUNT, AUTOMATED 199 k/mm3 (150-450); RED CELL DISTRIBUTION WIDTH 13.4 % (11.5-14.5); WHITE BLOOD COUNT 6.9 K/mm3 (4.0-10.0)
[2016-08-21 15:58] LABS: INR 1.95
[2016-08-21 16:39] LABS: ALBUMIN 3.4 GM/DL (3.2-5.2); ALBUMIN/GLOBULIN RATIO 1.17 (1.00-1.93); BILIRUBIN,TOTAL 0.6 MG/DL (0.2-1.0); CALCIUM LEVEL 8.7 MG/DL (8.5-10.1); CREATININE FOR GFR 1.16 MG/DL (0.55-1.02); FREE T4 1.26 NG/DL (0.76-1.46); GLOMERULAR FILTRATION RATE 51.1 (>51); MAGNESIUM LEVEL 1.8 MG/DL (1.8-2.4); POTASSIUM SERUM 4.3 MEQ/L (3.5-5.1); TOTAL PROTEIN 6.3 GM/DL (6.4-8.2); URIC ACID 5.3 MG/DL (2.6-6.0)
== END ==
LOC: M SFHCPLAZ 12:47
PROVIDERS: ATTEND Family Medicine
DX: N18.3 Chronic kidney disease, stage 3 (moderate) (principal); E03.9 Hypothyroidism, unspecified; I82.409 Acute embolism and thrombosis of unspecified deep veins of unspecified lower extremity; Z79.899 Other long term (current) drug therapy

== ENCOUNTER → 2016-11-17 | Outpatient (CLI) | payer MEDICARE, MEDICAID ==
--- NOTE | 2016-11-17 11:13 | REP ---
Clinical: Plantar fascial fibromatosis. Technique: AP, lateral, bilateral oblique views of the right foot. Findings: Moderate degenerative changes noted at the first metatarsophalangeal joint and tarsometatarsal joints including cortical irregularity, subchondral heterogeneity and cystic changes as well as early marginal spurring and joint space narrowing. Acute fracture dislocation. Vascular calcifications are identified. Lateral view demonstrates a small calcaneal heal spur without plantar fascial calcifications. Impression: Moderate arthritic degenerative changes. Small calcaneal heal spur without plantar fascial calcifications noted Signed by Luis Merino MD 11/17/2016 09:59 A
== END ==
LOC: M RAD 09:24
PROVIDERS: ATTEND Family Medicine
DX: M72.2 Plantar fascial fibromatosis (principal); M19.071 Primary osteoarthritis, right ankle and foot

== ENCOUNTER → 2016-12-05 | Outpatient (CLI) | payer MEDICARE, MEDICAID | LOC: M LAB 14:03 | PROVIDERS: ATTEND Nurse Practitioner Psychiatric/Mental Health | DX: Z79.899 Other long term (current) drug therapy (principal) ==

== ENCOUNTER 2016-12-07 12:35 | Outpatient (RCR) | payer MEDICARE, MEDICAID | END 2016-12-09 | LOC: M PT 12:35 | PROVIDERS: ATTEND Family Medicine | DX: Z51.89 Encounter for other specified aftercare (principal); M72.2 Plantar fascial fibromatosis | CPT/HCPCS: 97035; 97110; 97140; 97162; G8978; G8979 ==

== ENCOUNTER → 2016-12-14 | Outpatient (REF) | payer MEDICARE, MEDICAID ==
[2016-12-14 12:11] LABS: INR 2.2
[2016-12-14 12:38] LABS: ALBUMIN 3.6 GM/DL (3.2-5.2); ALBUMIN/GLOBULIN RATIO 1.2 (1.00-1.93); BILIRUBIN,TOTAL 0.5 MG/DL (0.2-1.0); CALCIUM LEVEL 8.7 MG/DL (8.5-10.1); CREATININE FOR GFR 1.13 MG/DL (0.55-1.02); GLOMERULAR FILTRATION RATE 52.6 (>51); POTASSIUM SERUM 4.8 MEQ/L (3.5-5.1); TOTAL PROTEIN 6.6 GM/DL (6.4-8.2)
== END ==
LOC: M SFHCPLAZ 09:23
PROVIDERS: ATTEND Family Medicine
DX: I82.409 Acute embolism and thrombosis of unspecified deep veins of unspecified lower extremity (principal); N18.3 Chronic kidney disease, stage 3 (moderate); E55.9 Vitamin D deficiency, unspecified; E78.5 Hyperlipidemia, unspecified; Z79.899 Other long term (current) drug therapy

== ENCOUNTER → 2017-04-30 | Outpatient (REF) | payer MEDICARE, MEDICAID ==
[2017-04-30 17:18] LABS: BASO # 0.1 10^3/uL (0.0-0.2); EOS # 0.2 10^3/uL (0.0-0.50); EOS % 2.1 % (0.0-3.0); HEMATOCRIT 40.6 % (36.0-47.0); HEMOGLOBIN 13.3 g/dl (12.0-16.0); IMMATURE GRANULOCYTE % 0.2 % (0-3.0); LYMPH # 1.6 10^3/uL (1.5-4.5); LYMPH % 17.4 % (24.0-44.0); MEAN CORPUSCULAR HEMOGLOBIN 31.1 pg (27.0-33.0); MEAN CORPUSCULAR HGB CONC 32.8 g/dl (32.0-36.5); MEAN CORPUSCULAR VOLUME 94.9 fl (80.0-96.0); MONO # 0.8 10^3/uL (0.0-0.8); MONO % 8.5 % (0.0-5.0); NEUTROPHILS # 6.4 10^3/uL (1.8-7.7); NEUTROPHILS % 70.8 % (36.0-66.0); PLATELET COUNT, AUTOMATED 194 10^3/uL (150-450); RED BLOOD COUNT 4.28 10^6/uL (4.00-5.40); RETIC HEMOGLOBIN EQUIVALENT 34.9 pg (24-36); RETICULOCYTE # 66.8 10^9/L (17-77); RETICULOCYTE % 1.6 % (0.5-1.5)
[2017-04-30 17:36] LABS: PROTHROMBIN TIME 19.5 SECONDS (12.4-14.5)
[2017-04-30 17:37] LABS: PARTIAL THROMBOPLASTIN TIME 48.1 SECONDS (26.8-37.9)
[2017-04-30 18:00] LABS: PTH INTACT 96.2 PG/ML (18.5-88.0); TOTAL 25(OH) VITAMIN D 82.4 NG/ML (30.0-100.0); VITAMIN B12 LEVEL 631 PG/ML (247-911)
[2017-04-30 18:05] LABS: ALBUMIN 3.8 GM/DL (3.2-5.2); ALBUMIN/GLOBULIN RATIO 1.27 (1.00-1.93); ALKALINE PHOSPHATASE 86 U/L (45-117); ALT/SGPT 30 U/L (12-78); ANION GAP 8 MEQ/L (8-16); AST/SGOT 19 U/L (7-37); BILIRUBIN,TOTAL 0.5 MG/DL (0.2-1.0); BLOOD UREA NITROGEN 11 MG/DL (7-18); CALCIUM LEVEL 8.5 MG/DL (8.5-10.1); CARBON DIOXIDE LEVEL 29 MEQ/L (21-32); CHLORIDE LEVEL 105 MEQ/L (98-107); FREE T4 1.51 NG/DL (0.76-1.46); GLUCOSE, FASTING 76 MG/DL (70-100); MAGNESIUM LEVEL 2.1 MG/DL (1.8-2.4); POTASSIUM SERUM 4.2 MEQ/L (3.5-5.1); SODIUM LEVEL 142 MEQ/L (136-145); TOTAL PROTEIN 6.8 GM/DL (6.4-8.2)
[2017-04-30 20:00] LABS: ESTIMATED AVERAGE GLUCOSE 169 MG/DL (60-110); HEMOGLOBIN A1c 7.5 %
== END ==
LOC: M SFHCPLAZ 13:03
DX: D50.9 Iron deficiency anemia, unspecified (principal); I10 Essential (primary) hypertension; E03.9 Hypothyroidism, unspecified; E11.8 Type 2 diabetes mellitus with unspecified complications; I82.409 Acute embolism and thrombosis of unspecified deep veins of unspecified lower extremity; E55.9 Vitamin D deficiency, unspecified
CPT/HCPCS: 83735

== ENCOUNTER → 2017-05-01 | Outpatient (CLI) | payer MEDICARE, MEDICAID | LOC: M WHC 13:02 | DX: Z12.31 Encounter for screening mammogram for malignant neoplasm of breast (principal); Z80.0 Family history of malignant neoplasm of digestive organs | CPT/HCPCS: 77067 ==

== ENCOUNTER → 2017-08-15 | Outpatient (REF) | payer MEDICARE, MEDICAID ==
[2017-08-15 11:50] LABS: BASO # 0.1 10^3/uL (0.0-0.2); BASO % 0.9 % (0.0-1.0); EOS # 0.1 10^3/uL (0.0-0.50); HEMATOCRIT 41.2 % (36.0-47.0); HEMOGLOBIN 13.9 g/dl (12.0-15.5); IMMATURE GRANULOCYTE % 0.3 % (0-3.0); LYMPH % 15.7 % (24.0-44.0); MEAN CORPUSCULAR HEMOGLOBIN 31.2 pg (27.0-33.0); MEAN CORPUSCULAR HGB CONC 33.7 g/dl (32.0-36.5); MEAN CORPUSCULAR VOLUME 92.6 fl (80.0-96.0); MONO # 0.5 10^3/uL (0.0-0.8); MONO % 7.4 % (0.0-5.0); NEUTROPHILS # 4.9 10^3/uL (1.8-7.7); NEUTROPHILS % 73.7 % (36.0-66.0); PLATELET COUNT, AUTOMATED 190 10^3/uL (150-450); RED BLOOD COUNT 4.45 10^6/uL (4.00-5.40); WHITE BLOOD COUNT 6.6 10^3/uL (4.0-10.0)
[2017-08-15 12:05] LABS: INR 2.29; PROTHROMBIN TIME 26.1 SECONDS (12.4-14.5)
[2017-08-15 12:06] LABS: PARTIAL THROMBOPLASTIN TIME 58.6 SECONDS (26.8-37.9)
[2017-08-15 12:17] LABS: ALBUMIN 3.9 GM/DL (3.2-5.2); ALBUMIN/GLOBULIN RATIO 1.26 (1.00-1.93); ALKALINE PHOSPHATASE 116 U/L (45-117); ALT/SGPT 28 U/L (12-78); ANION GAP 7 MEQ/L (8-16); AST/SGOT 18 U/L (7-37); BILIRUBIN,TOTAL 0.7 MG/DL (0.2-1.0); BLOOD UREA NITROGEN 20 MG/DL (7-18); CARBON DIOXIDE LEVEL 27 MEQ/L (21-32); CHLORIDE LEVEL 107 MEQ/L (98-107); CREATININE FOR GFR 1.06 MG/DL (0.55-1.30); GLOMERULAR FILTRATION RATE 56.5 (>51); GLUCOSE, FASTING 157 MG/DL (70-100); MAGNESIUM LEVEL 1.5 MG/DL (1.8-2.4); POTASSIUM SERUM 4.2 MEQ/L (3.5-5.1); PTH INTACT 53.4 PG/ML (18.5-88.0); SODIUM LEVEL 141 MEQ/L (136-145)
== END ==
LOC: M SFHCPLAZ 09:20
DX: I82.409 Acute embolism and thrombosis of unspecified deep veins of unspecified lower extremity (principal); N18.3 Chronic kidney disease, stage 3 (moderate)
CPT/HCPCS: 83735

== ENCOUNTER → 2017-09-17 | Outpatient (REF) | payer MEDICARE, MEDICAID ==
[2017-09-17 12:32] LABS: INR 2.95; PROTHROMBIN TIME 31.4 SECONDS (12.1-14.4)
== END ==
LOC: M SFHCPLAZ 09:30
DX: I82.409 Acute embolism and thrombosis of unspecified deep veins of unspecified lower extremity (principal)
CPT/HCPCS: 85610

== ENCOUNTER → 2017-12-03 | Outpatient (REF) | payer MEDICARE, MEDICAID ==
[2017-12-03 12:51] LABS: APPEARANCE, URINE HAZY (CLEAR); BACTERIA, URINE AUTO NEGATIVE (NEGATIVE); BILIRUBIN, URINE AUTO NEGATIVE (NEGATIVE); BLOOD, URINE BLOOD NEGATIVE (NEGATIVE); COLOR, URINE YELLOW (YELLOW); GLUCOSE, URINE (UA) AUTO NEGATIVE (NEGATIVE); KETONE, URINE AUTO NEGATIVE (NEGATIVE); LEUKOCYTE ESTERASE, URINE AUTO NEGATIVE (NEGATIVE); NITRITE, URINE AUTO NEGATIVE (NEGATIVE); PROTEIN, URINE AUTO 1+ mg/dL (NEGATIVE); RBC, URINE AUTO 1 /HPF (0-3); SPECIFIC GRAVITY URINE AUTO 1.017 (1.002-1.035); SQUAMOUS EPITHELIAL CELL UR AU 2 /HPF (0-6); UROBILINOGEN, URINE AUTO 0.2 mg/dL (0.0-2.0); WBC, URINE AUTO 4 /HPF (0-3)
[2017-12-03 12:56] LABS: INR 1.32; PROTHROMBIN TIME 16.6 SECONDS (12.1-14.4)
[2017-12-03 12:57] LABS: PARTIAL THROMBOPLASTIN TIME 39.4 SECONDS (25.4-37.6)
[2017-12-03 13:37] LABS: MAU/CREAT RATIO 81.4 MCG/MG (0.0-30.0)
[2017-12-03 14:15] LABS: ALBUMIN 3.7 GM/DL (3.2-5.2); ALBUMIN/GLOBULIN RATIO 1.09 (1.00-1.93); ALKALINE PHOSPHATASE 92 U/L (45-117); ALT/SGPT 28 U/L (12-78); ANION GAP 8 MEQ/L (8-16); AST/SGOT 20 U/L (7-37); BILIRUBIN,TOTAL 0.8 MG/DL (0.2-1.0); BLOOD UREA NITROGEN 12 MG/DL (7-18); CALCIUM LEVEL 8.9 MG/DL (8.5-10.1); CARBON DIOXIDE LEVEL 30 MEQ/L (21-32); CHLORIDE LEVEL 104 MEQ/L (98-107); CHOLESTEROL LEVEL 132 MG/DL (<200); CHOLESTEROL RISK RATIO 2.588 (<5); CPK CREATINE PHOSPHOKINASE 119 U/L (26-192); CREATININE FOR GFR 1.16 MG/DL (0.55-1.30); FREE T4 1.24 NG/DL (0.76-1.46); GLOMERULAR FILTRATION RATE 50.9 (>51); GLUCOSE, FASTING 67 MG/DL (70-100); HDL CHOLESTEROL 51 MG/DL (>40); LDL CHOLESTEROL 61 MG/DL (<100); NON-HDL-C 81 MG/DL; POTASSIUM SERUM 4.2 MEQ/L (3.5-5.1); SODIUM LEVEL 142 MEQ/L (136-145); TOTAL PROTEIN 7.1 GM/DL (6.4-8.2); TRIGLYCERIDES LEVEL 98 MG/DL (<150)
[2017-12-03 14:20] LABS: ESTIMATED AVERAGE GLUCOSE 189 MG/DL (60-110); HEMOGLOBIN A1c 8.2 %
== END ==
LOC: M SFHCPLAZ 07:13
DX: E78.5 Hyperlipidemia, unspecified (principal); E11.8 Type 2 diabetes mellitus with unspecified complications; I82.409 Acute embolism and thrombosis of unspecified deep veins of unspecified lower extremity
CPT/HCPCS: 82550

== ENCOUNTER → 2018-04-23 | Outpatient (CLI) | payer MEDICARE, MEDICAID ==
[~2018-04-23] MED LIST changes: +ACET500T15 PO; -ACET50TAOT PO; +COUM2.5T17 PO; +POTA10TA16 PO; +TRAZ-163 PO; +TRES1INJ2 SC; +TUMS750C20 PO; -VITA1CAP40 PO; +VITA50005 PO
--- NOTE | 2018-04-23 13:52 | REPMRS ---
Patient History The patient states she has not had a clinical breast exam in over a year. Family history of colorectal cancer at age 50 or over in father. 3D TOMOSYNTHESIS WAS PERFORMED. Digital Woman Screen Mammo: April 23, 2018 - Exam #: [id number] Bilateral CC and MLO view(s) were taken. Technologist: Barbara Steven, Technologist Prior study comparison: May 01, 2017, digital woman screen mammo performed at [facility] to [facility]. April 28, 2016, digital woman screen mammo performed at [facility] to [facility]. FINDINGS: There are scattered fibroglandular densities. There has been no change in the appearance of the mammogram from the prior studies. There is a mild amount of residual fibroglandular tissue which is fairly symmetric. There is no interval development of dominant mass, architectural distortion, or clustered microcalcification suggestive of malignancy. Assessment: BI-RADS/ACR category 1 mammogram. Negative Mammogram. Recommendation Routine screening mammogram in 1 year (for women over age 40). This mammogram was interpreted with the aid of an FDA-approved computer-aided dectection system. Electronically Signed By: Demetrius Rojas MD 04/23/18 [id number]
--- NOTE | 2018-04-25 14:16 | DEXA ---
AP SPINE L1 - L4 1.092 -0.8 0.4 LT FEMUR TOTAL 0.908 -0.8 0.1 LT NECK 0.826 -1.5 -0.3 RT FEMUR TOTAL 0.979 -0.2 0.7 RT NECK 0.830 -1.5 -0.3 TOTAL BODY TOTAL OTHER COMMENTS: Normal bone densitometry of the spine. There is low bone density of the hips. The increased density of the spine does represent a significant change. The decreased density of the left hip does not represent a significant change. The decreased density of the right hip does represent a significant change. The density of the spine has increased 29.7% since the initial exam on 10/04/2004. The spine density has increased 4.2% since the most recent exam on 04/28/2016. The density of the left hip has decreased 9.9% since the initial exam on 10/04/2004. The density of the left hip has decreased 1.9% since the most recent exam on 04/28/2016. The density of the right hip has decreased 3.2% since the initial exam on 10/04/2004. The density of the right hip has decreased 2.8% since the most recent exam on 04/28/2016. FOLLOW-UP: Recommendation for the next bone density exam: 2 years. LENO
== END ==
LOC: M WHC 12:31
PROVIDERS: ATTEND Family Medicine
DX: Z12.31 Encounter for screening mammogram for malignant neoplasm of breast (principal); Z13.820 Encounter for screening for osteoporosis; M85.9 Disorder of bone density and structure, unspecified

== ENCOUNTER → 2018-04-26 | Outpatient (REF) | payer MEDICARE, MEDICAID ==
[2018-04-26 18:20] LABS: BASO # 0.1 10^3/uL (0.0-0.2); BASO % 1.1 % (0.0-1.0); EOS # 0.2 10^3/uL (0.0-0.50); EOS % 2.4 % (0.0-3.0); HEMATOCRIT 38.9 % (36.0-47.0); HEMOGLOBIN 12.8 g/dl (12.0-15.5); LYMPH # 1.4 10^3/uL (1.5-4.5); MEAN CORPUSCULAR HEMOGLOBIN 30.7 pg (27.0-33.0); MEAN CORPUSCULAR HGB CONC 32.9 g/dl (32.0-36.5); MEAN CORPUSCULAR VOLUME 93.3 fl (80.0-96.0); MONO # 0.7 10^3/uL (0.0-0.8); MONO % 8.3 % (0.0-5.0); NEUTROPHILS # 5.5 10^3/uL (1.8-7.7); NEUTROPHILS % 69.8 % (36.0-66.0); PLATELET COUNT, AUTOMATED 209 10^3/uL (150-450); RED BLOOD COUNT 4.17 10^6/uL (4.00-5.40); WHITE BLOOD COUNT 7.9 10^3/uL (4.0-10.0)
[2018-04-26 18:28] LABS: INR 1.89
[2018-04-26 18:29] LABS: PARTIAL THROMBOPLASTIN TIME 54.4 SECONDS (25.4-37.6)
[2018-04-26 18:43] LABS: ALBUMIN 3.6 GM/DL (3.2-5.2); BILIRUBIN,TOTAL 0.5 MG/DL (0.2-1.0); CALCIUM LEVEL 8.8 MG/DL (8.8-10.2); CREATININE FOR GFR 1.26 MG/DL (0.55-1.30); GLOMERULAR FILTRATION RATE 46.1 (>45); POTASSIUM SERUM 4.3 MEQ/L (3.5-5.1); TOTAL PROTEIN 6.6 GM/DL (6.4-8.2)
[2018-04-26 18:52] LABS: PTH INTACT 65.5 PG/ML (18.5-88.0); TOTAL 25(OH) VITAMIN D 95.5 NG/ML (30.0-100.0)
[2018-04-26 19:03] LABS: HEMOGLOBIN A1c 8.1 %
== END ==
LOC: M SFHCPLAZ 14:53
PROVIDERS: ATTEND Family Medicine
DX: D50.9 Iron deficiency anemia, unspecified (principal); E55.9 Vitamin D deficiency, unspecified; E11.8 Type 2 diabetes mellitus with unspecified complications; Z51.81 Encounter for therapeutic drug level monitoring; Z79.01 Long term (current) use of anticoagulants

== ENCOUNTER → 2018-05-21 | Outpatient (REF) | payer MEDICARE, MEDICAID ==
[~2018-05-21] MED LIST changes: -/ESCI20TA; -/GLIM4TA; -/WARF5TA; +AMAR1TAB6; +COUM1TAB17; +LEXA1TAB2
[2018-05-21 17:12] LABS: APPEARANCE, URINE HAZY (CLEAR); BACTERIA, URINE AUTO NEGATIVE (NEGATIVE); BILIRUBIN, URINE AUTO NEGATIVE (NEGATIVE); BLOOD, URINE BLOOD 3+ (NEGATIVE); COLOR, URINE YELLOW (YELLOW); GLUCOSE, URINE (UA) AUTO NEGATIVE (NEGATIVE); KETONE, URINE AUTO NEGATIVE (NEGATIVE); LEUKOCYTE ESTERASE, URINE AUTO NEGATIVE (NEGATIVE); NITRITE, URINE AUTO NEGATIVE (NEGATIVE); PROTEIN, URINE AUTO 1+ mg/dL (NEGATIVE); RBC, URINE AUTO TNTC /HPF (0-3); SPECIFIC GRAVITY URINE AUTO 1.015 (1.002-1.035); SQUAMOUS EPITHELIAL CELL UR AU 0 /HPF (0-6); UROBILINOGEN, URINE AUTO 0.2 mg/dL (0.0-2.0); WBC, URINE AUTO 4 /HPF (0-3)
== END ==
LOC: M SFHCPLAZ 16:17
PROVIDERS: ATTEND Physician Assistant Medical
DX: N95.0 Postmenopausal bleeding (principal); R31.9 Hematuria, unspecified
CPT/HCPCS: 81001; 85610; 87086; G0463

== ENCOUNTER → 2018-05-23 | Outpatient (REF) | payer MEDICARE, MEDICAID ==
[~2018-05-23] MED LIST changes: -BONI150T PO; +BONI1TAB PO
[2018-05-27 14:21] LABS: HPV HYBRID CAPTURE II Negative (Negative)
== END ==
LOC: M SFHCWAGY 09:51
PROVIDERS: ATTEND Nurse Practitioner Women's Health
DX: N95.0 Postmenopausal bleeding (principal); N76.0 Acute vaginitis
CPT/HCPCS: 76830; 76856; 87624; G0123; G0463

== ENCOUNTER → 2018-05-23 | Outpatient (CLI) | payer MEDICARE, MEDICAID ==
[~2018-05-23] MED LIST changes: +/ESCI20TA; +/GLIM4TA; +/WARF5TA; -AMAR1TAB6; +BONI150T PO; -BONI1TAB PO; -COUM1TAB17; -LEXA1TAB2
--- NOTE | 2018-05-23 17:13 | REP ---
PELVIC AND ENDOVAGINAL PROBE ULTRASOUND: 05/23/2018. Comparison: 06/15/2008 Clinical history: Postmenopausal bleeding. Findings. Transabdominal and endovaginal probes were utilized. The bladder measured 10.8 x 7.7 x 7.9 cm. Uterus is anteverted and measures 8 x 3.9 x 4.5 cm. On EV probe endometrium has a thickness of 12.1 mm and is heterogeneous. Uterine contour is smooth. Myometrium fairly homogeneous. No fluid in the cul-de-sac. The right ovary is 1.5 x 1.5 x 1.3 cm without mass, cyst or adjacent free fluid. Small follicle is seen, subcentimeter in that ovary. The patient has had a left oophorectomy. On EV probe there are multiple Nabothian cysts visible. Impression: 1. Thickened endometrial stripe up to 12.1 mm with heterogeneous appearance. In a patient with postmenopausal bleeding, this should be considered abnormal and [employer] consultation for definitive diagnosis and treatment recommended. 2. Right ovary normal size and without mass or adjacent free fluid. 3. Left ovary is surgically absent. The uterus is not enlarged and has smooth contour. Multiple Nabothian cysts incidentally noted.
== END ==
LOC: M WHC 10:03
PROVIDERS: ATTEND Nurse Practitioner Women's Health
DX: N88.8 Other specified noninflammatory disorders of cervix uteri (principal); N95.0 Postmenopausal bleeding

== ENCOUNTER → 2018-06-10 | Outpatient (REF) | payer MEDICARE, MEDICAID ==
[~2018-06-10] MED LIST changes: -/ESCI20TA; -/GLIM4TA; -/WARF5TA; +AMAR1TAB6; -BONI150T PO; +BONI1TAB PO; +COUM1TAB17; +LEXA1TAB2
== END ==
LOC: M SFHCWAGY 13:20
PROVIDERS: ATTEND Nurse Practitioner Women's Health
DX: N84.0 Polyp of corpus uteri (principal); N95.0 Postmenopausal bleeding

== ENCOUNTER → 2018-07-29 | Outpatient (REF) | payer MEDICARE, MEDICAID ==
[~2018-07-29] MED LIST changes: +FLON1SPR; +GNP250TA9 PO; +LASI20TA3 PO; +LATANOPROST; +LISI-1046 PO; +MAGN400C PO; +NYST10CR EXT; +TIMO0.5S29; +TRES1INJ; +TYLETAB14 PO
[2018-07-29 17:10] LABS: BASO # 0.1 10^3/uL (0.0-0.2); BASO % 0.9 % (0.0-1.0); EOS # 0.1 10^3/uL (0.0-0.50); EOS % 1.4 % (0.0-3.0); HEMATOCRIT 43.4 % (36.0-47.0); HEMOGLOBIN 14.1 g/dl (12.0-15.5); LYMPH # 1.6 10^3/uL (1.5-4.5); LYMPH % 17.1 % (24.0-44.0); MEAN CORPUSCULAR HEMOGLOBIN 30.3 pg (27.0-33.0); MEAN CORPUSCULAR HGB CONC 32.5 g/dl (32.0-36.5); MEAN CORPUSCULAR VOLUME 93.3 fl (80.0-96.0); MONO # 0.7 10^3/uL (0.0-0.8); MONO % 7.6 % (0.0-5.0); NEUTROPHILS # 6.6 10^3/uL (1.8-7.7); NEUTROPHILS % 72.6 % (36.0-66.0); PLATELET COUNT, AUTOMATED 201 10^3/uL (150-450); RED BLOOD COUNT 4.65 10^6/uL (4.00-5.40); WHITE BLOOD COUNT 9.1 10^3/uL (4.0-10.0)
[2018-07-29 17:30] LABS: INR 1.6; PROTHROMBIN TIME 19.3 SECONDS (12.1-14.4)
[2018-07-29 17:31] LABS: PARTIAL THROMBOPLASTIN TIME 42.8 SECONDS (25.4-37.6)
[2018-07-29 19:36] LABS: ALBUMIN 3.7 GM/DL (3.2-5.2); BILIRUBIN,TOTAL 0.8 MG/DL (0.2-1.0); CALCIUM LEVEL 9.3 MG/DL (8.8-10.2); CREATININE FOR GFR 1.36 MG/DL (0.55-1.30); FREE T4 1.42 NG/DL (0.76-1.46); GLOMERULAR FILTRATION RATE 42.2 (>45); POTASSIUM SERUM 4.2 MEQ/L (3.5-5.1); THYROID STIMULATING HORMONE 1.78 uIU/ML (0.358-3.740)
[2018-07-29 21:31] LABS: HEMOGLOBIN A1c 6.9 %
== END ==
LOC: M SFHCPLAZ 12:54
PROVIDERS: ATTEND Family Medicine
DX: E11.8 Type 2 diabetes mellitus with unspecified complications (principal); N95.0 Postmenopausal bleeding
CPT/HCPCS: 36415; 80053; 83036; 83880; 84439; 84443; 85025; 85046; 85610; 85730; 93005; G0463

== ENCOUNTER → 2018-08-08 | Outpatient (CLI) | payer MEDICARE, MEDICAID ==
--- NOTE | 2018-08-08 10:55 | REP ---
RENAL ULTRASOUND WITH DUPLEX DOPPLER RENAL ARTERY EVALUATION: Real-time ultrasound evaluation of kidneys performed. Right kidney is moderately atrophic with hyperechoic echotexture measuring 8.7 x 4.1 x 3.6 cm. Left kidney is normal in size and echotexture 12.9 x 5.4 x 6.0 cm with suspected mild compensatory hypertrophy. There is no hydronephrosis or renal mass identified. There appears to be a calculus in the mid left renal collecting system 6 mm in diameter. Real-time ultrasound evaluation and duplex Doppler interrogation of the renal arteries is performed bilaterally. However the study is extremely limited due to patient body habitus and bowel gas. Abdominal aorta is not visualized at the level of the renal arteries. Proximal main left renal artery could not be visualized. Right renal vasculature could not be evaluated due to these factors as well as due to the fact that the kidney is moderately atrophic. Peak systolic velocity in the distal main left renal artery is 78 cm/s. Resistive indices are measured in the upper, middle, and lower thirds of the left kidney and range between 0.79-0.81. Acceleration times range between 0.029 and 0.043. There is no definite indirect evidence of significant stenosis of the main left renal artery. IMPRESSION: Moderate right renal atrophy. Mild compensatory hypertrophy of the left kidney. There appears to be a calculus in the mid left renal collecting system 6 mm in diameter. No hydronephrosis bilaterally. Limited evaluation of the renal arteries due to patient body habitus, bowel gas, and moderate atrophy of the right kidney. There is no indirect duplex Doppler sonographic evidence of significant stenosis of the main left renal artery. Further evaluation could be made with CTA or MRA depending on renal function tests. Electronically Signed by Demetrius Rojas MD 08/08/2018 04:30 P
== END ==
LOC: M RAD 06:59
PROVIDERS: ATTEND Family Medicine
DX: N18.3 Chronic kidney disease, stage 3 (moderate) (principal); N26.1 Atrophy of kidney (terminal); N28.81 Hypertrophy of kidney

== ENCOUNTER 2018-08-14 09:19 | Day surgery (SDC) | payer MEDICARE, MEDICAID ==
[~2018-08-14] VITALS: Ht 160 cm; Wt 122.6 kg
[~2018-08-14 09:19] MED LIST changes: +LR 1,000 ML IV ONE; -TYLETAB14 PO
[2018-08-14 10:14] LABS: HEMATOCRIT 39.1 % (36.0-47.0); HEMOGLOBIN 12.9 g/dl (12.0-15.5); MEAN CORPUSCULAR HEMOGLOBIN 31.2 pg (27.0-33.0); MEAN CORPUSCULAR VOLUME 94.7 fl (80.0-96.0); PLATELET COUNT, AUTOMATED 194 10^3/uL (150-450); RED BLOOD COUNT 4.13 10^6/uL (4.00-5.40); WHITE BLOOD COUNT 7.2 10^3/uL (4.0-10.0)
[2018-08-14 10:25] LABS: INR 1.11; PROTHROMBIN TIME 14.5 SECONDS (12.1-14.4)
[2018-08-14] MEDS ORDERED: KETOROLAC 60 MG/2 ML VIAL (J1885) As Ordered ONE (11:17)
[2018-08-14] MEDS ORDERED: dexameTHASONE 4 MG/ML 1ML VIAL (J1100) As Ordered ONE (11:17)
[2018-08-14] MEDS ORDERED: MIDAZOLAM INJ 2 MG/2 ML VIAL (J2250) As Ordered ONE (11:17)
[2018-08-14] MEDS ORDERED: ONDANSETRON 4MG/2ML VIAL (J2405) As Ordered ONE (11:17)
[2018-08-14] MEDS ORDERED: fentaNYL 100 MCG/2 ML INJECTION (J3010) As Ordered ONE (11:17)
[2018-08-14] MEDS ORDERED: LIDOCAINE 2% INJ 100 MG/5 ML SDV (FOR ANES.) As Ordered ONE (11:17)
[2018-08-14] MEDS ORDERED: PROPOFOL 200 MG/20 ML VIAL As Ordered ONE (11:17)
[2018-08-14] MEDS ORDERED: SILVER NITRATE APPLICATOR As Ordered ONE (13:02)
[2018-08-14] MEDS ORDERED: ACETAMINOPHEN 1000MG 100ML IV BTL (OFIRMEV) (J0131 PER 10MG) As Ordered ONE (13:28)
[2018-08-14] MEDS ORDERED: NEOSTIGMINE 10 MG/10 ML VIAL (J2710) As Ordered ONE (13:50)
[2018-08-14] MEDS ORDERED: GLYCOPYRROLATE INJ 0.2 MG/ML 2 ML VIAL As Ordered ONE (13:50)
[2018-08-14] MEDS ORDERED: ESMOLOL INJ 100MG/10ML VIAL As Ordered ONE (14:31)
[2018-08-14] MEDS ORDERED: TYLETAB14 PO (14:45)
[2018-08-14] MEDS ORDERED: LR 1,000 ML IV SCH ×2 (15:15)
[2018-08-14] MEDS ORDERED: fentaNYL 100 MCG/2 ML INJECTION (J3010) IV PRN (15:15)
[2018-08-14] MEDS ORDERED: METOCLOPRAMIDE INJ 10MG/2ML VIAL (J2765) IV PRN (15:15)
[2018-08-14] MEDS ORDERED: oxyCODONE 5MG TAB PO PRN (15:15)
[2018-08-14] MEDS ORDERED: PROMETHAZINE INJ 25 MG/ML VIAL (J2550) IV PRN (15:15)
[2018-08-14 16:00] VITALS: BP 157/67
--- NOTE | 2018-08-15 06:42 | RO ---
DATE OF PROCEDURE: 08/14/2018 PREOPERATIVE DIAGNOSIS: Postmenopausal bleeding. POSTOPERATIVE DIAGNOSIS: Postmenopausal bleeding and an endometrial mass. PROCEDURE PERFORMED: 1. Hysteroscopy, dilation and curettage (D and C). 2. MyoSure morcellation of endometrial mass. SURGEON: Dr. Michael Lau DO ANCHOR TACK PULLER: None ANESTHESIA: General. SPECIMENS TO PATHOLOGY: 1. Endometrial mass (morcellated). 2. Endometrial curettings. ESTIMATED BLOOD LOSS: 50 mL. FLUIDS REPLACED: 600 mL lactated Ringer's. FLUID DEFICIT: Less than 500 mL. DRAINS: In-and-out catheter, 150 mL urine output. COMPLICATIONS: None. ANTIBIOTICS: None indicated. INTRAOPERATIVE FINDINGS: 1. Endometrial mass was approximately 2 cm in greatest dimension. This was morcellated with the MyoSure. 2. Atrophic background endometrial curettings were performed. 3. Uterus sounded to 9 cm. INDICATION: 58-year-old with postmenopausal bleeding. Ultrasound reveals heterogeneity within the endometrial cavity suggestive of endometrial mass, polyp versus malignancy versus fibroid. DESCRIPTION OF PROCEDURE: The patient was counseled and consented on the risks, benefits, indications, and alternatives to the procedure. Informed consent was obtained. She was taken to the operating room with an IV running and placed on the operating table in the dorsal supine position. General anesthesia was administered and the airway secured without any difficulty. She was placed in the high lithotomy position. She was prepared and draped in the normal sterile fashion. A time out was performed per protocol. The bladder was drained with sterile in-and-out catheter. Sterile speculum was placed with good visualization of the cervix. The cervix was grasped with a single-tooth tenaculum and downward traction was applied. The cervix was sequentially dilated with Merritt dilators up to #16. The hysteroscope was placed transcervical into the intrauterine cavity with the findings noted above. The MyoSure device was inserted and direct morcellation was performed under hysteroscopic visualization. Once the mass was removed, the MyoSure device was removed as well. Sharp curette was placed transcervically into the intrauterine cavity and a light curettage was performed throughout the entire cavity with minimal tissue return. The hysteroscope was placed for one final inspection and a background atrophic endometrium was noted. No evidence of uterine perforation was noted. Air bubble was seen at the anterior of the cavity and no uncontrolled bleeding was present. The decision was made to conclude the procedure. The device was removed. All instruments were removed from the vagina. Counts were correct per protocol. Minimal bleeding from the os was noted. The patient was transferred to the postanesthesia care unit (PACU) in good and stable condition. LENO
== END 2018-08-14 16:30 | disposition home or self-care (01) ==
LOC: M SDC 09:19
PROVIDERS: ATTEND Obstetrics & Gynecology
DX: N85.01 Benign endometrial hyperplasia (principal); I10 Essential (primary) hypertension; E11.9 Type 2 diabetes mellitus without complications; Z88.2 Allergy status to sulfonamides; Z79.01 Long term (current) use of anticoagulants; E03.9 Hypothyroidism, unspecified; E78.5 Hyperlipidemia, unspecified; F41.9 Anxiety disorder, unspecified; F32.9 Major depressive disorder, single episode, unspecified; Z86.711 Personal history of pulmonary embolism; Z79.899 Other long term (current) drug therapy
CPT/HCPCS: 36415; 58558; 85027; 85610; 86850; 86900; 86901; 88305; J0131; J1100; J1885; J2250; J2405; J2710; J3010

== ENCOUNTER → 2019-02-28 | Outpatient (CLI) | payer MEDICARE, MEDICAID ==
[~2019-02-28] MED LIST changes: -GLIM4TAB PO; +GLIM4TAB3 PO; -LR 1,000 ML IV ONE; +TYLETAB14 PO
--- NOTE | 2019-02-28 12:40 | REP ---
Urinary tract sonography: History: Nephrolithiasis. Comparison sonography August 08, 2018. Findings: Renal cortical echogenicity pattern is slightly increased consistent with chronic medical renal disease. There is no evidence of hydronephrosis on either side. The right kidney is slightly atrophic. There is a 7 mm echogenic focus in the left mid kidney consistent with a calculus. This is unchanged. Left renal dimensions are 13.2 x 5.6 x 5.4 cm. The right kidney measures 9.0 x 3.6 x 3.1 cm. Scanning at the level of the urinary bladder shows no abnormality. Impression: Intrarenal calculus lower pole left kidney. Somewhat atrophic right kidney. Increased renal cortical echogenicity pattern. Electronically Signed by Leeroy Noyola MD 02/28/2019 01:56 P
--- NOTE | 2019-02-28 12:44 | REP ---
LEFT SHOULDER, THREE VIEWS: There is no evidence of an acute fracture, dislocation or intrinsic bone disease. The joint spaces are unremarkable. IMPRESSION: No fracture or dislocation. Electronically Signed by Demetrius Rojas MD 02/28/2019 04:53 P
== END ==
LOC: M RAD 10:30
PROVIDERS: ATTEND Family Medicine
DX: N20.0 Calculus of kidney (principal); N28.81 Hypertrophy of kidney; M75.42 Impingement syndrome of left shoulder

== ENCOUNTER → 2019-03-10 | Outpatient (CLI) | payer MEDICARE, MEDICAID ==
[2019-03-10 11:26] LABS: BASO # 0.1 10^3/uL (0.0-0.2); BASO % 1.1 % (0.0-1.0); EOS # 0.3 10^3/uL (0.0-0.5); EOS % 3.2 % (0.0-3.0); HEMATOCRIT 42.4 % (36.0-47.0); HEMOGLOBIN 13.8 g/dl (12.0-15.5); LYMPH # 1.3 10^3/uL (1.5-5.0); MEAN CORPUSCULAR HEMOGLOBIN 31.2 pg (27.0-33.0); MEAN CORPUSCULAR HGB CONC 32.5 g/dl (32.0-36.5); MEAN CORPUSCULAR VOLUME 95.9 fl (80.0-96.0); MONO # 0.7 10^3/uL (0.0-0.8); MONO % 7.8 % (0.0-5.0); NEUTROPHILS # 6.1 10^3/uL (1.5-8.5); NEUTROPHILS % 72.4 % (36.0-66.0); PLATELET COUNT, AUTOMATED 196 10^3/uL (150-450); RED BLOOD COUNT 4.42 10^6/uL (4.00-5.40); WHITE BLOOD COUNT 8.4 10^3/uL (4.0-10.0)
[2019-03-10 12:11] LABS: ALBUMIN 3.6 GM/DL (3.2-5.2); BILIRUBIN,TOTAL 0.4 MG/DL (0.2-1.0); CALCIUM LEVEL 8.7 MG/DL (8.8-10.2); CHOLESTEROL RISK RATIO 3.361 (<5); CREATININE FOR GFR 1.31 MG/DL (0.55-1.30); FREE T4 1.16 NG/DL (0.76-1.46); GLOMERULAR FILTRATION RATE 43.9 (>45); MAGNESIUM LEVEL 1.9 MG/DL (1.8-2.4); POTASSIUM SERUM 4.5 MEQ/L (3.5-5.1); THYROID STIMULATING HORMONE 3.29 uIU/ML (0.358-3.740); TOTAL PROTEIN 6.6 GM/DL (6.4-8.2)
[2019-03-10 13:41] LABS: HEMOGLOBIN A1c 8.3 %
== END ==
LOC: M PLALAB 08:05
PROVIDERS: ATTEND Nurse Practitioner Family
DX: E03.9 Hypothyroidism, unspecified (principal); N18.3 Chronic kidney disease, stage 3 (moderate); D50.9 Iron deficiency anemia, unspecified; E11.8 Type 2 diabetes mellitus with unspecified complications

== ENCOUNTER → 2019-03-27 | Outpatient (CLI) | payer MEDICARE, MEDICAID ==
[~2019-03-27] MED LIST changes: -GLIM4TAB3 PO; +GLIM4TAB5 PO; -TRAZ-163 PO; +TRAZ-257 PO
--- NOTE | 2019-03-27 11:03 | REP ---
CT ABDOMEN AND PELVIS WITHOUT CONTRAST: CT abdomen and pelvis performed without oral or IV contrast. Sagittal and reconstruction images are performed. Comparison 12/11/2014. No infiltrate is seen in the visualized lung bases. Liver and gallbladder are grossly unremarkable with no gross biliary dilatation. Spleen is normal in size. Adrenals are normal. Pancreas is grossly unremarkable. There is moderate right renal atrophy with diffuse cortical thinning. There are two adjacent calculi in the lower pole of the right renal collecting system each measuring about 3 mm. The left kidney demonstrates a 3 mm calculus in the mid collecting system and a 5 mm calculus in the lower pole collecting system. There is no hydroureteronephrosis bilaterally. There is no abdominal aortic aneurysm. No adenopathy is seen. I see no free air or free fluid. I see no bowel wall thickening. No pelvic mass is seen. IUD is seen in the uterus. There are mild degenerative changes of the spine. IMPRESSION: Moderate right renal atrophy. Bilateral intrarenal calculi as discussed in detail above without evidence of hydroureteronephrosis. No bladder calculus is seen. Note is made of an IUD in the uterus. Electronically Signed by Demetrius Rojas MD 03/27/2019 07:07 P
== END ==
LOC: M RAD 09:35
PROVIDERS: ATTEND Nurse Practitioner Family
DX: N26.9 Renal sclerosis, unspecified (principal); N20.0 Calculus of kidney; Z97.5 Presence of (intrauterine) contraceptive device

== ENCOUNTER → 2019-04-03 | Outpatient (CLI) | payer MEDICARE, MEDICAID ==
[~2019-04-03] MED LIST changes: -FLUO20CA19 PO; +FLUO20CA22 PO; +KETO0.3S OD; +LEVO112T2 PO; +NYST1POW9 TOP; +PATA2.5S OP; +POTA10808 PO; +PREDOPD OD; +PROL60SO SC; -TIMO0.5S29; +TIMO0.5S29 OU
[2019-04-03 18:20] LABS: BASO # 0.1 10^3/uL (0.0-0.2); BASO % 1.4 % (0.0-1.0); EOS # 0.2 10^3/uL (0.0-0.5); EOS % 2.5 % (0.0-3.0); HEMATOCRIT 45.1 % (36.0-47.0); HEMOGLOBIN 14.3 g/dl (12.0-15.5); LYMPH # 1.5 10^3/uL (1.5-5.0); MEAN CORPUSCULAR HEMOGLOBIN 30.4 pg (27.0-33.0); MEAN CORPUSCULAR HGB CONC 31.7 g/dl (32.0-36.5); MEAN CORPUSCULAR VOLUME 95.8 fl (80.0-96.0); MONO # 0.5 10^3/uL (0.0-0.8); MONO % 6.8 % (0.0-5.0); NEUTROPHILS # 4.8 10^3/uL (1.5-8.5); NEUTROPHILS % 67.6 % (36.0-66.0); PLATELET COUNT, AUTOMATED 189 10^3/uL (150-450); RED BLOOD COUNT 4.71 10^6/uL (4.00-5.40); WHITE BLOOD COUNT 7.1 10^3/uL (4.0-10.0)
[2019-04-03 18:29] LABS: INR 2.33; PROTHROMBIN TIME 25.3 SECONDS (11.8-14.0)
[2019-04-03 18:30] LABS: PARTIAL THROMBOPLASTIN TIME 49.9 SECONDS (25.0-38.4)
[2019-04-03 18:34] LABS: ALBUMIN 3.9 GM/DL (3.2-5.2); BILIRUBIN,TOTAL 0.6 MG/DL (0.2-1.0); CALCIUM LEVEL 8.9 MG/DL (8.8-10.2); CREATININE FOR GFR 1.27 MG/DL (0.55-1.30); GLOMERULAR FILTRATION RATE 45.5 (>45); POTASSIUM SERUM 4.5 MEQ/L (3.5-5.1); TOTAL PROTEIN 7.1 GM/DL (6.4-8.2)
== END ==
LOC: M PLALAB 12:50
PROVIDERS: ATTEND Family Medicine
DX: Z01.818 Encounter for other preprocedural examination (principal); I50.32 Chronic diastolic (congestive) heart failure
CPT/HCPCS: 36415; 80053; 85025; 85610; 85730; 93005; G0463

== ENCOUNTER → 2019-04-07 | Outpatient (CLI) | payer MEDICARE, MEDICAID ==
[~2019-04-07] MED LIST changes: +FLUO20CA19 PO; -FLUO20CA22 PO; -KETO0.3S OD; -LEVO112T2 PO; -NYST1POW9 TOP; -PATA2.5S OP; -POTA10808 PO; -PREDOPD OD; -PROL60SO SC; +TIMO0.5S29; -TIMO0.5S29 OU
--- NOTE | 2019-04-07 11:22 | REP ---
Supine abdomen three views for renal calculi: Comparison is the abdomen/pelvis CT dated 03/27/2019. There is a 4 mm calculus, faintly visible projected over the lower pole of the left kidney, similar to the comparison CT. No right renal calculi are identified on the study today, however, the right renal fossa is obscured by bowel gas. On the comparison CT there is a calculus in the lower pole right kidney and the right kidney demonstrate renal cortical atrophy. There is an IUD in the midline of the pelvis. There are calcifications in the pelvis, likely phleboliths. The bowel gas pattern is normal. The Impression: A faintly visible left renal calculus is identified. The the right renal fossa is obscured by bowel gas, no right renal calculi identified. There is an IUD in the pelvis. Pelvic calcifications, likely phleboliths. Electronically Signed by Demetrius Kumar MD 04/07/2019 11:14 A
== END ==
LOC: M RAD 09:20
PROVIDERS: ATTEND Nurse Practitioner Family
DX: N20.0 Calculus of kidney (principal); Z97.5 Presence of (intrauterine) contraceptive device

== ENCOUNTER 2019-04-09 12:31 | Outpatient (RCR) | payer MEDICARE, MEDICAID | END 2019-04-11 | LOC: M PT 12:31 | PROVIDERS: ATTEND Nurse Practitioner Family | DX: M75.42 Impingement syndrome of left shoulder (principal) ==

== ENCOUNTER → 2019-04-17 | Outpatient (CLI) | payer MEDICARE, MEDICAID ==
[~2019-04-17] MED LIST changes: -FLUO20CA19 PO; +FLUO20CA22 PO; +KETO0.3S OD; +LEVO112T2 PO; +NYST1POW9 TOP; +PATA2.5S OP; +POTA10808 PO; +PREDOPD OD; +PROL60SO SC; -TIMO0.5S29; +TIMO0.5S29 OU
--- NOTE | 2019-04-17 14:51 | REPPI ---
Chest x-ray: Two views. History: Nephrolithiasis. Comparison chest x-ray: May 30, 2015. Findings: The lungs are symmetrically aerated and free of infiltrate. Heart size is borderline with cardiothoracic ratio 53.2%. This does not appear to be a change. Pulmonary vasculature is not increased. No significant bony abnormality is appreciated. Impression: Borderline heart size. Otherwise no acute disease. Electronically Signed by Leeroy Noyola MD 04/17/2019 02:42 P
== END ==
LOC: M PLAIMG 14:09
PROVIDERS: ATTEND Nurse Practitioner Family
DX: Z01.818 Encounter for other preprocedural examination (principal); N20.0 Calculus of kidney
CPT/HCPCS: 71046; 93005; G0463

== ENCOUNTER 2019-04-24 06:32 | Day surgery (SDC) | payer MEDICARE, MEDICAID ==
[~2019-04-24] VITALS: Ht 160 cm; Wt 128.0 kg
[~2019-04-24 06:32] MED LIST changes: +LR 1,000 ML IV ONE; +ceFAZolin SOD 1 GM in D5W MINI-BAG PLUS 50 ML IV ONE; +ceFAZolin SOD 2 GM in IV 1 EA IV ONE
[2019-04-24] MEDS ORDERED: MIDAZOLAM INJ 2 MG/2 ML VIAL (J2250) As Ordered ONE (06:36)
[2019-04-24] MEDS ORDERED: fentaNYL 100 MCG/2 ML INJECTION (J3010) As Ordered ONE (06:36)
[2019-04-24] MEDS ORDERED: propofoL 200 MG/20 ML VIAL As Ordered ONE (06:39)
[2019-04-24] MEDS ORDERED: LIDOCAINE 2% INJ 100 MG/5 ML SDV (FOR ANES.) As Ordered ONE (06:45)
[2019-04-24 07:38] LABS: INR 1.12; PROTHROMBIN TIME 14.1 SECONDS (11.8-14.0)
--- NOTE | 2019-04-24 07:58 | REP ---
Clinical: Nephrolithiasis. Technique: Two supine views of the abdomen and pelvis. Findings: A small left intrarenal calculus measuring approximately 4 mm is suggested. The bilateral calculi identified on recent CT dated 03/27/2019 are poorly identified due to overlying bowel gas. Nonspecific bowel gas pattern. No organomegaly. Skeletal structures are intact. IUD and phleboliths noted in the pelvis. Impression: Limited examination for intrarenal calculi. 4 mm calculus in the left kidney suggested. Electronically Signed by Luis Merino MD 04/24/2019 07:50 A
[2019-04-24 10:50] VITALS: BP 140/80
--- NOTE | 2019-04-24 21:44 | RO ---
DATE OF PROCEDURE: 04/24/2019 PREPROCEDURE DIAGNOSIS: Left kidney stones. POSTPROCEDURE DIAGNOSIS: Left kidney stones. PROCEDURE: Left extracorporeal shock wave lithotripsy. SURGEON: Ruiz Cuba MD EVENT TECHNICIAN: None. ANESTHESIA: Monitored anesthesia care (MAC). OPERATIVE INDICATIONS: This is a 59-year-old female who was found to have two nonobstructing left kidney stones measuring up to about 7 mm in size. She is brought to the operating room today for treatment. DESCRIPTION OF PROCEDURE: The patient was brought to the operating room and MAC anesthesia was administered. Prophylactic antibiotics were infused. He was then placed in the supine position for left-sided extracorporeal shock wave lithotripsy. Ultrasound was utilized to monitor stone position and fragmentation throughout the procedure. Shock waves were then delivered to the left sided kidney stones, ungated. There were no arrhythmias. The stones did appear to fragment well. After 2500 shocks the procedure was concluded. The patient was then awakened from anesthesia and transported to the recovery room in stable condition. ESTIMATED BLOOD LOSS: 0 mL. INTRAOPERATIVE COMPLICATIONS: None. SPECIMENS: None. PLAN: The patient will followup in the clinic in a few weeks with imaging prior to assess for residual stone burden.
== END 2019-04-24 11:26 | disposition home or self-care (01) ==
LOC: M SDC 06:32
PROVIDERS: ATTEND Urology
DX: N20.0 Calculus of kidney (principal); Z88.2 Allergy status to sulfonamides; Z88.8 Allergy status to other drugs, medicaments and biological substances
CPT/HCPCS: 36415; 50590; 74018; 85610; J0690; J2250; J3010

== ENCOUNTER → 2019-05-14 | Outpatient (CLI) | payer MEDICARE, MEDICAID ==
[~2019-05-14] MED LIST changes: -LR 1,000 ML IV ONE; -ceFAZolin SOD 1 GM in D5W MINI-BAG PLUS 50 ML IV ONE; -ceFAZolin SOD 2 GM in IV 1 EA IV ONE
--- NOTE | 2019-05-14 11:55 | REP ---
KUB ABDOMEN/PELVIS: Two KUB films of abdomen/pelvis performed. Bowel gas pattern is normal. No definite radiopaque calculus is seen overlying the renal shadows. Phleboliths and vascular calcifications are seen in pelvis. IUD is seen in the pelvis just to the right of midline. There are mild degenerative changes of the spine. Electronically Signed by Demetrius Rojas MD 05/14/2019 04:08 P
== END ==
LOC: M RAD 10:34
PROVIDERS: ATTEND Nurse Practitioner Family
DX: N20.0 Calculus of kidney (principal)

== ENCOUNTER → 2019-05-15 | Outpatient (CLI) | payer MEDICARE, MEDICAID ==
--- NOTE | 2019-05-15 16:39 | REPMRS ---
Patient History The patient states she has not had a clinical breast exam in over a year. Patient is postmenopausal and is nulliparous. Family history of colorectal cancer at age 50 or over in father. No Hormone Replacement Therapy Digital Woman Screen Mammo: May 15, 2019 - Exam #: [id number] Bilateral CC and MLO view(s) were taken. Technologist: Rika Navarrete, Technologist Prior study comparison: April 23, 2018, bilateral digital woman screen mammo performed at [facility]. May 01, 2017, digital woman screen mammo performed at [facility]. April 28, 2016, digital woman screen mammo performed at [facility]. FINDINGS: There are scattered fibroglandular densities. There has been no change in the appearance of the mammogram from the prior studies. There is a mild amount of scattered fibroglandular density which is fairly symmetric. There is no interval development of dominant mass, architectural distortion, or grouped microcalcification suggestive of malignancy. 3-D tomosynthesis shows no additional findings. Assessment: BI-RADS/ACR category 1 mammogram. Negative Mammogram. Recommendation Routine screening mammogram of both breasts in 1 year (for women over age 40). This patient's Lifetime Breast Cancer Risk is estimated at 8.0 %. This mammogram was interpreted with the aid of an FDA-approved computer-aided dectection system. Electronically Signed By: Angel Noyola MD 05/15/19 0845
== END ==
LOC: M WHC 13:31
PROVIDERS: ATTEND Family Medicine
DX: Z12.31 Encounter for screening mammogram for malignant neoplasm of breast (principal); Z78.0 Asymptomatic menopausal state; Z80.0 Family history of malignant neoplasm of digestive organs

== ENCOUNTER → 2019-06-09 | Outpatient (REF) | payer MEDICARE, MEDICAID ==
[~2019-06-09] MED LIST changes: +OLOP2.5D3 OU; -PATA0.2S OU
== END ==
LOC: M SFHCWAGY 10:00
PROVIDERS: ATTEND Obstetrics & Gynecology
DX: N85.01 Benign endometrial hyperplasia (principal)

== ENCOUNTER → 2019-07-15 | Outpatient (REF) | payer MEDICARE, MEDICAID ==
[~2019-07-15] MED LIST changes: -LISI-1046 PO; +LISI2.5T2 PO
[2019-07-15 10:48] LABS: BASO # 0.1 10^3/uL (0.0-0.2); EOS # 0.1 10^3/uL (0.0-0.5); HEMATOCRIT 42.5 % (36.0-47.0); HEMOGLOBIN 13.8 g/dl (12.0-15.5); LYMPH % 14.9 % (24.0-44.0); MEAN CORPUSCULAR HEMOGLOBIN 30.5 pg (27.0-33.0); MEAN CORPUSCULAR HGB CONC 32.5 g/dl (32.0-36.5); MONO # 0.5 10^3/uL (0.0-0.8); NEUTROPHILS # 5.2 10^3/uL (1.5-8.5); NEUTROPHILS % 74.7 % (36.0-66.0); PLATELET COUNT, AUTOMATED 187 10^3/uL (150-450); RED BLOOD COUNT 4.52 10^6/uL (4.00-5.40)
[2019-07-15 10:51] LABS: INR 2.13; PROTHROMBIN TIME 23.6 SECONDS (11.8-14.0)
[2019-07-15 10:52] LABS: PARTIAL THROMBOPLASTIN TIME 42.8 SECONDS (25.0-38.4)
[2019-07-15 11:10] LABS: ALBUMIN 3.5 GM/DL (3.2-5.2); BILIRUBIN,TOTAL 0.5 MG/DL (0.2-1.0); CALCIUM LEVEL 9.2 MG/DL (8.8-10.2); CREATININE FOR GFR 1.42 MG/DL (0.55-1.30); FREE T4 1.47 NG/DL (0.76-1.46); POTASSIUM SERUM 4.8 MEQ/L (3.5-5.1); THYROID STIMULATING HORMONE 2.87 uIU/ML (0.358-3.740); TOTAL PROTEIN 6.6 GM/DL (6.4-8.2)
[2019-07-15 11:13] LABS: PTH INTACT 41.2 PG/ML (18.5-88.0); TOTAL 25(OH) VITAMIN D 85.9 NG/ML (30.0-100.0)
[2019-07-15 11:57] LABS: HEMOGLOBIN A1c 9.5 %
== END ==
LOC: M PLALAB 08:04
PROVIDERS: ATTEND Family Medicine
DX: D50.9 Iron deficiency anemia, unspecified (principal); N18.3 Chronic kidney disease, stage 3 (moderate); E11.8 Type 2 diabetes mellitus with unspecified complications; Z51.81 Encounter for therapeutic drug level monitoring

== ENCOUNTER → 2019-08-19 | Outpatient (REF) | payer MEDICARE, MEDICAID ==
[2019-08-19 16:10] LABS: INR 2.05; PROTHROMBIN TIME 22.9 SECONDS (11.8-14.0)
== END ==
LOC: M SFHCPLAZ 14:09
PROVIDERS: ATTEND Physician Assistant Medical
DX: I82.409 Acute embolism and thrombosis of unspecified deep veins of unspecified lower extremity (principal); Z79.01 Long term (current) use of anticoagulants
CPT/HCPCS: 36415; 85610; 95250; G0463

== ENCOUNTER → 2019-09-03 | Outpatient (CLI) | payer MEDICARE, MEDICAID ==
--- NOTE | 2019-09-03 16:35 | REPPI ---
LUMBOSACRAL SPINE: Five views of the lumbosacral spine performed. There is no compression fracture. There is normal lumbar lordosis. There is mild diffuse spurring with a more moderate degree of spurring anteriorly of L5. There is mild disc space narrowing and subchondral sclerosis at L3-4, L4-5, and L5-S1. There is also sclerosis and spurring at the posterior facet joints at those levels. The posterior elements are intact. IUD is seen in the pelvis. There are vascular calcifications in the pelvis bilaterally. IMPRESSION: Degenerative changes of the lower lumbar spine with no fracture or dislocation. Electronically Signed by Demetrius Rojas MD 09/03/2019 07:42 P
== END ==
LOC: M PLAIMG 14:49
PROVIDERS: ATTEND Physician Assistant Medical
DX: M53.86 Other specified dorsopathies, lumbar region (principal); M51.36 Other intervertebral disc degeneration, lumbar region; M51.37 Other intervertebral disc degeneration, lumbosacral region; Z97.5 Presence of (intrauterine) contraceptive device
CPT/HCPCS: 72110; G0463

== ENCOUNTER → 2019-09-08 | Outpatient (CLI) | payer MEDICARE, MEDICAID ==
[2019-09-08 11:08] LABS: INR 2.56; PROTHROMBIN TIME 27.4 SECONDS (11.8-14.0)
== END ==
LOC: M PLALAB 08:04
PROVIDERS: ATTEND Physician Assistant Medical
DX: I82.409 Acute embolism and thrombosis of unspecified deep veins of unspecified lower extremity (principal)

== ENCOUNTER → 2020-03-27 | Outpatient (CLI) | payer MEDICARE, MEDICAID ==
[~2020-03-27] MED LIST changes: +RISP-8 PO; -RISP1TAB3 PO
--- NOTE | 2020-03-30 10:38 | SLEEPCENT ---
NOCTURNAL POLYSOMNOGRAPHY DATE: 03/27/2020 ORDERED BY: VICENTA Rahman Nocturnal polysomnography was performed for reevaluation of sleep physiology in this patient with a prior history of obstructive sleep apnea syndrome. 7 hours and 40 minutes of data were reviewed. There were only 160 minutes of sleep identified. Sleep latency was quite prolonged at 129.5 minutes. REM latency was prolonged at 208.5 minutes. Sleep architecture was fair with a period of wake between 1 and 3 a.m. resulting in a reduced sleep efficiency of 35.6%. The electrocardiogram showed a sinus rhythm with an average heart rate of 64 beats per minute. Rate range 60 to 72. EEG showed normal waveforms for wake and sleep. There were only 9 respiratory events identified of 10 seconds in duration or greater for an apnea-hypopnea index of only 3.4. The events seen were in stage REM. Some snoring was, however, noted and respiratory-related arousals occurred three times per hour. There were no significant oxygen desaturations below 90%. Some limb activity was appreciated. There were no trains of events. Limb movement arousal index was 6.8. IMPRESSION: Normal nocturnal polysomnography with snoring. [facility]AMPUSSanjuana
== END ==
LOC: M SLEEP 20:00
PROVIDERS: ATTEND Nurse Practitioner Family
DX: G47.33 Obstructive sleep apnea (adult) (pediatric) (principal)

== ENCOUNTER → 2020-04-23 | Outpatient (REF) | payer MEDICARE, MEDICAID ==
[2020-04-23 10:30] LABS: BASO # 0.1 10^3/uL (0.0-0.2); BASO % 1.1 % (0.0-1.0); EOS # 0.2 10^3/uL (0.0-0.5); EOS % 2.6 % (0.0-3.0); HEMATOCRIT 40.4 % (36.0-47.0); HEMOGLOBIN 12.8 g/dl (12.0-15.5); LYMPH # 1.2 10^3/uL (1.5-5.0); LYMPH % 14.5 % (24.0-44.0); MEAN CORPUSCULAR HEMOGLOBIN 29.5 pg (27.0-33.0); MEAN CORPUSCULAR HGB CONC 31.7 g/dl (32.0-36.5); MEAN CORPUSCULAR VOLUME 93.1 fl (80.0-96.0); MONO # 0.6 10^3/uL (0.0-0.8); MONO % 6.9 % (0.0-5.0); NEUTROPHILS # 6.2 10^3/uL (1.5-8.5); NEUTROPHILS % 74.5 % (36.0-66.0); PLATELET COUNT, AUTOMATED 210 10^3/uL (150-450); RED BLOOD COUNT 4.34 10^6/uL (4.00-5.40); WHITE BLOOD COUNT 8.4 10^3/uL (4.0-10.0)
[2020-04-23 10:48] LABS: INR 1.87; PROTHROMBIN TIME 21.9 SECONDS (12.5-14.3)
[2020-04-23 10:54] LABS: HEMOGLOBIN A1c 8.8 %
[2020-04-23 11:07] LABS: ALBUMIN 3.6 GM/DL (3.2-5.2); BILIRUBIN,TOTAL 0.6 MG/DL (0.2-1.0); CALCIUM LEVEL 9.1 MG/DL (8.8-10.2); CREATININE FOR GFR 1.56 MG/DL (0.55-1.30); FREE T4 1.15 NG/DL (0.76-1.46); GLOMERULAR FILTRATION RATE 35.8 (>45); POTASSIUM SERUM 4.7 MEQ/L (3.5-5.1); THYROID STIMULATING HORMONE 5.77 uIU/ML (0.358-3.740); TOTAL PROTEIN 6.9 GM/DL (6.4-8.2); URIC ACID 6.1 MG/DL (2.6-6.0)
== END ==
LOC: M SFHCPLAZ 08:08
PROVIDERS: ATTEND Family Medicine
DX: E11.8 Type 2 diabetes mellitus with unspecified complications (principal); I82.409 Acute embolism and thrombosis of unspecified deep veins of unspecified lower extremity; D50.9 Iron deficiency anemia, unspecified; E03.9 Hypothyroidism, unspecified; E78.5 Hyperlipidemia, unspecified; Z79.899 Other long term (current) drug therapy

== ENCOUNTER → 2020-05-13 | Outpatient (CLI) | payer MEDICARE, MEDICAID ==
--- NOTE | 2020-05-13 09:04 | REP ---
INDICATION: CKD 3 COMPARISON: 02/28/2019 TECHNIQUE: Real time sanders scale ultrasound examination using curved array transducer followed by color Doppler evaluation of the renal vasculature. FINDINGS: The right kidney is atrophic and hyperechoic without hydronephrosis and measures 8.8 x 3.5 x 4.1 cm. The left kidney demonstrates compensatory enlargement without hydronephrosis and measures 14.4 x 5.2 x 5.6 cm with possible small nonobstructing lower pole calculus. COLOR DOPPLER EVALUATION . Peak aortic velocity: 82 centimeters/second RIGHT KIDNEY Renal arterial velocity: No perceptible flow identified in the region of the main renal artery and very poor decreased flow is identified within the right intrarenal arteries. Renal-aortic ratio: -- Intrarenal resistive indices: 0.64-0.75 Intrarenal acceleration times: 0.017-0.033 LEFT KIDNEY Renal arterial velocity: 129 centimeters/second Renal-aortic ratio: 1.57 Intrarenal resistive indices: 0.75-0.85 Intrarenal acceleration times: 0.033-0.052 IMPRESSION: 1. Atrophic appearance to the right kidney with significantly decreased arterial flow suggesting right main renal artery disease, and findings are essentially unchanged as compared to 2019. 2. Compensatory enlargement and relatively normal vascularity to the left kidney without evidence for associated left renal arterial stenosis/disease. <Electronically signed by Luis Merino > 05/13/20 [id number]
== END ==
LOC: M RAD 07:58
PROVIDERS: ATTEND Family Medicine
DX: Z09 Encounter for follow-up examination after completed treatment for conditions other than malignant neoplasm (principal); N18.30 Chronic kidney disease, stage 3 unspecified

== ENCOUNTER → 2020-05-17 | Outpatient (CLI) | payer MEDICARE, MEDICAID ==
[~2020-05-17] MED LIST changes: +AMMO12LO; +LATA0.0015; +NORT10CA2; +TRUL10IN
--- NOTE | 2020-05-17 12:01 | REPMRS ---
Patient History The patient states she has not had a clinical breast exam in over a year. Family history of colorectal cancer at age 50 or over in father. No Hormone Replacement Therapy Digital Woman Screen Mammo: May 17, 2020 - Exam #: [id number] Bilateral CC and MLO view(s) were taken. Technologist: Delmi Justice Technologist Prior study comparison: May 15, 2019, bilateral digital woman screen mammo performed at [facility]. April 23, 2018, bilateral digital woman screen mammo performed at [facility]. May 01, 2017, digital woman screen mammo performed at [facility]. FINDINGS: The breast tissue is almost entirely fat. The Volpara volumetric breast density category is: A. There has been no change in the appearance of the mammogram from the prior studies. There is no interval development of dominant mass, architectural distortion, or grouped microcalcification typical of malignancy. 3-D tomosynthesis shows no additional findings. Assessment: BI-RADS/ACR category 1 mammogram. Negative Mammogram. Recommendation Routine screening mammogram of both breasts in 1 year (for women over age 40). This patient's [facility] Lifetime Breast Cancer RIsk is estimated at 7.7 %. This mammogram was interpreted with the aid of an FDA-approved computer-aided dectection system. Electronically Signed By: Angel Noyola MD 05/17/20 1200
== END ==
LOC: M WHC 10:53
PROVIDERS: ATTEND Family Medicine
DX: Z12.31 Encounter for screening mammogram for malignant neoplasm of breast (principal); Z80.0 Family history of malignant neoplasm of digestive organs
CPT/HCPCS: 77063; 77067; G0463

== ENCOUNTER → 2020-05-26 | Outpatient (CLI) | payer MEDICARE, MEDICAID ==
[~2020-05-26] MED LIST changes: -AMMO12LO; -LATA0.0015; -NORT10CA2; -TRUL10IN
--- NOTE | 2020-05-26 09:08 | REPPI ---
INDICATION: N20.0 NEPHROLITHIASIS COMPARISON: None. TECHNIQUE: Supine view of the abdomen and pelvis. FINDINGS: Evaluation of the urinary tract system is limited by overlying bowel gas. Small nonobstructing nephroliths cannot be excluded. Calcifications in the pelvis likely represent phleboliths. The bowel gas pattern demonstrates retained fecal material and no evidence for obstruction or perforation. IUD identified in the pelvis. Skeletal structures intact. IMPRESSION: Limited examination for nephroureterolithiasis. <Electronically signed by Luis Merino > 05/26/20 0900
== END ==
LOC: M PLAIMG 08:04
PROVIDERS: ATTEND Nurse Practitioner Family
DX: N20.0 Calculus of kidney (principal)

== ENCOUNTER 2020-06-08 07:49 | Emergency (ER) | payer MEDICARE, MEDICAID ==
[~2020-06-08] VITALS: Ht 160 cm; Wt 126.3 kg
--- NOTE | 2020-06-08 08:18 | REP ---
INDICATION: injury, pain. COMPARISON: None. TECHNIQUE: Four views of the left hand are obtained. FINDINGS: Four views of the left hand demonstrate a chip fracture at the base of the middle phalanx of the small finger at the PIP joint. This is nondisplaced.. . No opaque foreign body noted. Vascular calcification is noted at the wrist. IMPRESSION: Nondisplaced chip fracture at the PIP joint of the small finger involving the base of the middle phalanx. There is associated soft tissue swelling.. <Electronically signed by Angel Noyola > 06/08/20 [id number]
[2020-06-08] MEDS ORDERED: AMMO12LO (08:56)
[2020-06-08] MEDS ORDERED: LATA0.0015 (08:56)
[2020-06-08] MEDS ORDERED: TRUL10IN (08:56)
[2020-06-08] MEDS ORDERED: NORT10CA2 (08:56)
[2020-06-08 09:21] VITALS: BP 138/68
== END 2020-06-08 09:24 | disposition home or self-care (01) ==
LOC: M ED 07:49
DX: S62.607A Fracture of unspecified phalanx of left little finger, initial encounter for closed fracture (principal); W22.8XXA Striking against or struck by other objects, initial encounter; Z79.01 Long term (current) use of anticoagulants; Z79.899 Other long term (current) drug therapy; Z88.1 Allergy status to other antibiotic agents; Z88.2 Allergy status to sulfonamides; Z88.8 Allergy status to other drugs, medicaments and biological substances; Y92.9 Unspecified place or not applicable; Y93.9 Activity, unspecified; Y99.9 Unspecified external cause status

== ENCOUNTER → 2020-07-01 | Outpatient (CLI) | payer MEDICARE, MEDICAID ==
[~2020-07-01] MED LIST changes: +AMMO12LO; +LATA0.0015; +NORT10CA2; +TRUL10IN
--- NOTE | 2020-07-01 11:49 | REP ---
INDICATION: F/U FX. COMPARISON: 06/08/2020 TECHNIQUE: AP and lateral views of the left 5th digit FINDINGS: Intra-articular corner fracture at the base of the middle phalanx is again noted and essentially unchanged in appearance. No obvious significant callus formation or periosteal reaction to suggest healing. IMPRESSION: Corner fracture at the base of the middle phalanx unchanged in appearance <Electronically signed by Luis Merino > 07/01/20 1143
== END ==
LOC: M SOG 11:09
PROVIDERS: ATTEND Orthopaedic Surgery Sports Medicine
DX: S62.657D Nondisplaced fracture of middle phalanx of left little finger, subsequent encounter for fracture with routine healing (principal)

== ENCOUNTER → 2020-08-23 | Outpatient (REF) | payer MEDICARE, MEDICAID ==
[~2020-08-23] MED LIST changes: +ERGO500029 PO
== END ==
LOC: M SFHCWAGY 15:57
PROVIDERS: ATTEND Obstetrics & Gynecology
DX: Z12.4 Encounter for screening for malignant neoplasm of cervix (principal); Z77.9 Other contact with and (suspected) exposures hazardous to health
CPT/HCPCS: 87624; G0101; G0123

== ENCOUNTER → 2020-08-30 | Outpatient (REF) | payer MEDICARE, MEDICAID ==
[2020-08-30 11:59] LABS: BASO # 0.1 10^3/uL (0.0-0.2); BASO % 1.1 % (0.0-1.0); EOS # 0.2 10^3/uL (0.0-0.5); EOS % 2.4 % (0.0-3.0); HEMATOCRIT 43.7 % (36.0-47.0); HEMOGLOBIN 13.8 g/dl (12.0-15.5); LYMPH # 1.5 10^3/uL (1.5-5.0); LYMPH % 16.9 % (24.0-44.0); MEAN CORPUSCULAR HEMOGLOBIN 29.5 pg (27.0-33.0); MEAN CORPUSCULAR HGB CONC 31.6 g/dl (32.0-36.5); MEAN CORPUSCULAR VOLUME 93.4 fl (80.0-96.0); MONO # 0.6 10^3/uL (0.0-0.8); NEUTROPHILS # 6.3 10^3/uL (1.5-8.5); NEUTROPHILS % 72.1 % (36.0-66.0); PLATELET COUNT, AUTOMATED 228 10^3/uL (150-450); RED BLOOD COUNT 4.68 10^6/uL (4.00-5.40); WHITE BLOOD COUNT 8.7 10^3/uL (4.0-10.0)
[2020-08-30 12:18] LABS: INR 2.04; PROTHROMBIN TIME 23.5 SECONDS (12.5-14.3)
[2020-08-30 12:48] LABS: ALBUMIN 3.9 GM/DL (3.2-5.2); BILIRUBIN,TOTAL 0.6 MG/DL (0.2-1.0); CALCIUM LEVEL 9.6 MG/DL (8.8-10.2); CREATININE FOR GFR 1.35 MG/DL (0.55-1.30); GLOMERULAR FILTRATION RATE 42.3 (>45); MAGNESIUM LEVEL 2.2 MG/DL (1.8-2.4); POTASSIUM SERUM 4.5 MEQ/L (3.5-5.1); TOTAL PROTEIN 7.2 GM/DL (6.4-8.2)
[2020-08-30 12:54] LABS: CREATININE, URINE 46.2 MG/DL; MAU/CREAT RATIO 201.2 MCG/MG (0.0-30.0)
[2020-08-30 14:01] LABS: PTH INTACT 46.4 PG/ML (18.5-88.0)
== END ==
LOC: M PLALAB 08:04
PROVIDERS: ATTEND Family Medicine
DX: I50.32 Chronic diastolic (congestive) heart failure (principal); D50.9 Iron deficiency anemia, unspecified; N18.30 Chronic kidney disease, stage 3 unspecified; E11.8 Type 2 diabetes mellitus with unspecified complications

== ENCOUNTER → 2021-01-11 | Outpatient (CLI) | payer MEDICARE, MEDICAID ==
[~2021-01-11] MED LIST changes: -LISI2.5T2 PO; +LISI2.5T9 PO
[2021-01-11 10:28] LABS: BASO # 0.1 10^3/uL (0.0-0.2); BASO % 1.1 % (0.0-1.0); EOS # 0.4 10^3/uL (0.0-0.5); EOS % 4.6 % (0.0-3.0); HEMATOCRIT 40.3 % (36.0-47.0); HEMOGLOBIN 12.9 g/dl (12.0-15.5); LYMPH # 1.5 10^3/uL (1.5-5.0); LYMPH % 19.2 % (24.0-44.0); MEAN CORPUSCULAR HEMOGLOBIN 29.6 pg (27.0-33.0); MEAN CORPUSCULAR VOLUME 92.4 fl (80.0-96.0); MONO # 0.6 10^3/uL (0.0-0.8); MONO % 7.8 % (2.0-8.0); NEUTROPHILS # 5.3 10^3/uL (1.5-8.5); NEUTROPHILS % 66.9 % (36.0-66.0); PLATELET COUNT, AUTOMATED 209 10^3/uL (150-450); RED BLOOD COUNT 4.36 10^6/uL (4.00-5.40); WHITE BLOOD COUNT 7.9 10^3/uL (4.0-10.0)
[2021-01-11 10:47] LABS: HEMOGLOBIN A1c 9.7 %
[2021-01-11 11:07] LABS: ALBUMIN 3.2 GM/DL (3.2-5.2); BILIRUBIN,TOTAL 0.3 MG/DL (0.2-1.0); C REACTIVE PROTEIN QUANTITATIV 2.98 MG/DL (0.00-0.30); CALCIUM LEVEL 9.2 MG/DL (8.8-10.2); CHOLESTEROL RISK RATIO 2.86 (<5); CREATININE FOR GFR 1.53 MG/DL (0.55-1.30); FREE T4 1.21 NG/DL (0.76-1.46); GLOMERULAR FILTRATION RATE 36.6 (>45); PERCENT SATURATION 20.3 % (13.2-45.0); POTASSIUM SERUM 4.5 MEQ/L (3.5-5.1); THYROID STIMULATING HORMONE 3.51 uIU/ML (0.358-3.740); TOTAL PROTEIN 6.5 GM/DL (6.4-8.2)
== END ==
LOC: M PLALAB 08:02
PROVIDERS: ATTEND Family Medicine
DX: D50.9 Iron deficiency anemia, unspecified (principal); E03.9 Hypothyroidism, unspecified; E11.8 Type 2 diabetes mellitus with unspecified complications

== ENCOUNTER → 2021-04-22 | Outpatient (CLI) | payer MEDICARE, MEDICAID ==
[~2021-04-22] MED LIST changes: +POTA-149 PO; -POTA10TA16 PO
[2021-04-22 11:05] LABS: INR 1.45; PROTHROMBIN TIME 18.1 SECONDS (12.7-14.5)
== END ==
LOC: M PLALAB 08:09
PROVIDERS: ATTEND Physician Assistant Medical
DX: I82.409 Acute embolism and thrombosis of unspecified deep veins of unspecified lower extremity (principal); Z79.01 Long term (current) use of anticoagulants

== ENCOUNTER → 2021-04-22 | Outpatient (CLI) | payer MEDICARE, MEDICAID ==
[2021-04-22 10:23] LABS: BASO # 0.1 10^3/uL (0.0-0.2); BASO % 0.9 % (0.0-1.0); EOS # 0.3 10^3/uL (0.0-0.5); EOS % 3.3 % (0.0-3.0); HEMATOCRIT 41.8 % (36.0-47.0); HEMOGLOBIN 13.6 g/dl (12.0-15.5); LYMPH # 1.5 10^3/uL (1.5-5.0); LYMPH % 17.4 % (24.0-44.0); MEAN CORPUSCULAR HEMOGLOBIN 30.3 pg (27.0-33.0); MEAN CORPUSCULAR HGB CONC 32.5 g/dl (32.0-36.5); MEAN CORPUSCULAR VOLUME 93.1 fl (80.0-96.0); MONO # 0.6 10^3/uL (0.0-0.8); MONO % 6.5 % (2.0-8.0); NEUTROPHILS # 6.1 10^3/uL (1.5-8.5); NEUTROPHILS % 71.5 % (36.0-66.0); PLATELET COUNT, AUTOMATED 234 10^3/uL (150-450); RED BLOOD COUNT 4.49 10^6/uL (4.00-5.40); WHITE BLOOD COUNT 8.5 10^3/uL (4.0-10.0)
[2021-04-22 10:47] LABS: HEMOGLOBIN A1c 6.9 %
[2021-04-22 11:24] LABS: ALBUMIN 3.6 GM/DL (3.2-5.2); BILIRUBIN,TOTAL 0.5 MG/DL (0.2-1.0); C REACTIVE PROTEIN QUANTITATIV 4.29 MG/DL (0.00-0.30); CHOLESTEROL RISK RATIO 2.279 (<5); CREATININE FOR GFR 1.47 MG/DL (0.55-1.30); FREE T4 1.27 NG/DL (0.76-1.46); GLOMERULAR FILTRATION RATE 38.2 (>45); PERCENT SATURATION 15.2 % (13.2-45.0); POTASSIUM SERUM 4.4 MEQ/L (3.5-5.1); THYROID STIMULATING HORMONE 4.86 uIU/ML (0.358-3.740); TOTAL PROTEIN 6.7 GM/DL (6.4-8.2)
== END ==
LOC: M PLALAB 08:13
PROVIDERS: ATTEND Family Medicine
DX: D50.9 Iron deficiency anemia, unspecified (principal); E03.9 Hypothyroidism, unspecified; E11.8 Type 2 diabetes mellitus with unspecified complications; I82.409 Acute embolism and thrombosis of unspecified deep veins of unspecified lower extremity; Z79.01 Long term (current) use of anticoagulants

== ENCOUNTER → 2021-05-09 | Outpatient (CLI) | payer MEDICARE, MEDICAID ==
[2021-05-09 10:24] LABS: INR 1.48; PROTHROMBIN TIME 18.3 SECONDS (12.7-14.5)
[2021-05-09 10:45] LABS: ALBUMIN 3.6 GM/DL (3.2-5.2); CALCIUM LEVEL 9.3 MG/DL (8.8-10.2); CREATININE FOR GFR 1.38 MG/DL (0.55-1.30); GLOMERULAR FILTRATION RATE 41.1 (>45); PHOSPHORUS LEVEL 3.5 MG/DL (2.5-4.9); POTASSIUM SERUM 4.6 MEQ/L (3.5-5.1)
[2021-05-09 10:57] LABS: PTH INTACT 59.3 PG/ML (18.5-88.0)
== END ==
LOC: M PLALAB 08:15
PROVIDERS: ATTEND Family Medicine
DX: I82.409 Acute embolism and thrombosis of unspecified deep veins of unspecified lower extremity (principal)

== ENCOUNTER → 2021-05-20 | Outpatient (CLI) | payer MEDICARE, MEDICAID | LOC: M PLALAB 10:44 | PROVIDERS: ATTEND Family Medicine | DX: I82.409 Acute embolism and thrombosis of unspecified deep veins of unspecified lower extremity (principal); Z79.01 Long term (current) use of anticoagulants ==

== ENCOUNTER → 2021-05-20 | Outpatient (CLI) | payer MEDICARE, MEDICAID ==
[2021-05-20 15:21] LABS: INR 2.01; PROTHROMBIN TIME 23.2 SECONDS (12.7-14.5)
== END ==
LOC: M PLAIMG 10:39 → M PLALAB 10:39
PROVIDERS: ATTEND Physician Assistant
DX: M25.562 Pain in left knee (principal); I82.409 Acute embolism and thrombosis of unspecified deep veins of unspecified lower extremity; S89.91XA Unspecified injury of right lower leg, initial encounter; W19.XXXA Unspecified fall, initial encounter; Y92.9 Unspecified place or not applicable; Y99.9 Unspecified external cause status; Z79.01 Long term (current) use of anticoagulants

== ENCOUNTER → 2021-05-30 | Outpatient (CLI) | payer MEDICARE, MEDICAID | LOC: M SOG 10:25 | PROVIDERS: ATTEND Orthopaedic Surgery Adult Reconstructive Orthopaedic Surgery | DX: M25.562 Pain in left knee (principal) ==

== ENCOUNTER → 2021-06-29 | Outpatient (CLI) | payer MEDICARE, MEDICAID ==
[2021-06-29 11:04] LABS: INR 1.86; PROTHROMBIN TIME 21.8 SECONDS (12.7-14.5)
== END ==
LOC: M PLALAB 08:36
PROVIDERS: ATTEND Physician Assistant
DX: I82.409 Acute embolism and thrombosis of unspecified deep veins of unspecified lower extremity (principal)

== ENCOUNTER → 2021-07-15 | Outpatient (CLI) | payer MEDICARE, MEDICAID | LOC: M WHC 10:29 | PROVIDERS: ATTEND Family Medicine | DX: Z12.31 Encounter for screening mammogram for malignant neoplasm of breast (principal); Z80.0 Family history of malignant neoplasm of digestive organs ==

== ENCOUNTER → 2021-07-18 | Outpatient (CLI) | payer MEDICARE, MEDICAID ==
[2021-07-18 10:47] LABS: INR 1.99
== END ==
LOC: M PLALAB 08:11
PROVIDERS: ATTEND Physician Assistant
DX: I82.409 Acute embolism and thrombosis of unspecified deep veins of unspecified lower extremity (principal)

== ENCOUNTER → 2021-08-15 | Outpatient (CLI) | payer MEDICARE, MEDICAID ==
[2021-08-15 14:12] LABS: BASO # 0.1 10^3/uL (0.0-0.2); EOS # 0.3 10^3/uL (0.0-0.5); HEMATOCRIT 41.1 % (36.0-47.0); HEMOGLOBIN 13.2 g/dl (12.0-15.5); LYMPH # 1.3 10^3/uL (1.5-5.0); LYMPH % 13.3 % (24.0-44.0); MEAN CORPUSCULAR HEMOGLOBIN 30.5 pg (27.0-33.0); MEAN CORPUSCULAR HGB CONC 32.1 g/dl (32.0-36.5); MEAN CORPUSCULAR VOLUME 94.9 fl (80.0-96.0); MONO # 0.6 10^3/uL (0.0-0.8); MONO % 5.8 % (2.0-8.0); NEUTROPHILS # 7.3 10^3/uL (1.5-8.5); NEUTROPHILS % 76.3 % (36.0-66.0); PLATELET COUNT, AUTOMATED 229 10^3/uL (150-450); RED BLOOD COUNT 4.33 10^6/uL (4.00-5.40); WHITE BLOOD COUNT 9.6 10^3/uL (4.0-10.0)
[2021-08-15 14:39] LABS: HEMOGLOBIN A1c 6.6 %
[2021-08-15 14:46] LABS: INR 2.61; PROTHROMBIN TIME 28.3 SECONDS (12.7-14.5)
[2021-08-15 14:51] LABS: ALBUMIN 3.2 GM/DL (3.2-5.2); BILIRUBIN,TOTAL 0.4 MG/DL (0.2-1.0); CALCIUM LEVEL 8.6 MG/DL (8.8-10.2); CREATININE FOR GFR 1.29 MG/DL (0.55-1.30); GLOMERULAR FILTRATION RATE 44.4 (>45); MAGNESIUM LEVEL 1.8 MG/DL (1.8-2.4); POTASSIUM SERUM 5.2 MEQ/L (3.5-5.1)
== END ==
LOC: M PLALAB 08:09
PROVIDERS: ATTEND Family Medicine
DX: D50.9 Iron deficiency anemia, unspecified

== ENCOUNTER → 2021-08-26 | Outpatient (CLI) | payer MEDICARE, MEDICAID | LOC: M CARPUL 08:11 | PROVIDERS: ATTEND Family Medicine | DX: I34.0 Nonrheumatic mitral (valve) insufficiency (principal) ==

== ENCOUNTER → 2021-09-21 | Outpatient (CLI) | payer MEDICARE, MEDICAID ==
[2021-09-21 12:05] LABS: BASO # 0.1 10^3/uL (0.0-0.2); BASO % 0.8 % (0.0-1.0); EOS # 0.1 10^3/uL (0.0-0.5); EOS % 1.3 % (0.0-3.0); HEMATOCRIT 40.2 % (36.0-47.0); HEMOGLOBIN 12.9 g/dl (12.0-15.5); LYMPH # 1.3 10^3/uL (1.5-5.0); LYMPH % 14.8 % (24.0-44.0); MEAN CORPUSCULAR HEMOGLOBIN 30.3 pg (27.0-33.0); MEAN CORPUSCULAR HGB CONC 32.1 g/dl (32.0-36.5); MEAN CORPUSCULAR VOLUME 94.4 fl (80.0-96.0); MONO # 0.7 10^3/uL (0.0-0.8); MONO % 7.5 % (2.0-8.0); NEUTROPHILS # 6.6 10^3/uL (1.5-8.5); NEUTROPHILS % 75.3 % (36.0-66.0); PLATELET COUNT, AUTOMATED 198 10^3/uL (150-450); RED BLOOD COUNT 4.26 10^6/uL (4.00-5.40); WHITE BLOOD COUNT 8.8 10^3/uL (4.0-10.0)
[2021-09-21 12:12] LABS: INR 2.01; PROTHROMBIN TIME 23.2 SECONDS (12.7-14.5)
== END ==
LOC: M PLALAB 08:23
PROVIDERS: ATTEND Family Medicine
DX: Z79.01 Long term (current) use of anticoagulants (principal)

== ENCOUNTER → 2021-11-18 | Outpatient (CLI) | payer MEDICARE, MEDICAID ==
[~2021-11-18] MED LIST changes: +NYST-13 EXT; -NYST10CR EXT; +SIMV-253 PO; -ZOCO20TA PO
[2021-11-18 10:36] LABS: BASO # 0.1 10^3/uL (0.0-0.2); EOS # 0.3 10^3/uL (0.0-0.5); HEMATOCRIT 40.5 % (36.0-47.0); HEMOGLOBIN 13.1 g/dl (12.0-15.5); LYMPH # 1.3 10^3/uL (1.5-5.0); LYMPH % 14.8 % (24.0-44.0); MEAN CORPUSCULAR HEMOGLOBIN 31.1 pg (27.0-33.0); MEAN CORPUSCULAR HGB CONC 32.3 g/dl (32.0-36.5); MEAN CORPUSCULAR VOLUME 96.2 fl (80.0-96.0); MONO # 0.6 10^3/uL (0.0-0.8); MONO % 6.7 % (2.0-8.0); NEUTROPHILS # 6.4 10^3/uL (1.5-8.5); PLATELET COUNT, AUTOMATED 215 10^3/uL (150-450); RED BLOOD COUNT 4.21 10^6/uL (4.00-5.40); WHITE BLOOD COUNT 8.6 10^3/uL (4.0-10.0)
[2021-11-18 10:59] LABS: INR 2.13; PROTHROMBIN TIME 24.2 SECONDS (12.7-14.5)
[2021-11-18 12:18] LABS: ALBUMIN 3.5 GM/DL (3.2-5.2); BILIRUBIN,TOTAL 0.5 MG/DL (0.2-1.0); CALCIUM LEVEL 9.3 MG/DL (8.8-10.2); CREATININE FOR GFR 1.31 MG/DL (0.55-1.30); FREE T4 1.25 NG/DL (0.76-1.46); GLOMERULAR FILTRATION RATE 43.7 (>45); POTASSIUM SERUM 4.6 MEQ/L (3.5-5.1); THYROID STIMULATING HORMONE 2.52 uIU/ML (0.358-3.740); TOTAL PROTEIN 6.6 GM/DL (6.4-8.2)
[2021-11-18 13:02] LABS: PTH INTACT 56.1 PG/ML (18.5-88.0); TOTAL 25(OH) VITAMIN D 60.5 NG/ML (30.0-100.0)
== END ==
LOC: M PLALAB 08:11
PROVIDERS: ATTEND Family Medicine
DX: E03.9 Hypothyroidism, unspecified (principal); D50.9 Iron deficiency anemia, unspecified; E55.9 Vitamin D deficiency, unspecified; I82.409 Acute embolism and thrombosis of unspecified deep veins of unspecified lower extremity; Z79.899 Other long term (current) drug therapy

== ENCOUNTER → 2021-12-08 | Outpatient (CLI) | payer MEDICARE, MEDICAID ==
[2021-12-08 11:14] LABS: INR 1.46; PROTHROMBIN TIME 18.2 SECONDS (12.7-14.5)
== END ==
LOC: M PLALAB 08:25
PROVIDERS: ATTEND Family Medicine
DX: I82.409 Acute embolism and thrombosis of unspecified deep veins of unspecified lower extremity (principal)

== ENCOUNTER → 2022-02-14 | Outpatient (CLI) | payer MEDICARE, MEDICAID ==
[2022-02-14 14:41] LABS: HEMOGLOBIN A1c 5.9 % (4.0-6.0)
[2022-02-14 14:42] LABS: INR 2.04; PROTHROMBIN TIME 23.4 SECONDS (12.5-14.5)
[2022-02-14 15:30] LABS: MAGNESIUM LEVEL 1.7 MG/DL (1.8-2.4)
[2022-02-14 15:31] LABS: ALBUMIN 3.1 G/DL (3.2-5.2); BILIRUBIN,TOTAL 0.3 MG/DL (0.3-1.2); CALCIUM LEVEL 8.4 MG/DL (8.3-10.6); CHOLESTEROL RISK RATIO 2.52 (<5); CREATININE FOR GFR 1.16 MG/DL (0.55-1.30); GLOMERULAR FILTRATION RATE 50.2 (>45); POTASSIUM SERUM 4.6 MMOL/L (3.5-5.1)
[2022-02-15 07:08] LABS: APOLIPOPROTEIN B/A-1 RATIO 0.5 ratio (0.0-0.6)
== END ==
LOC: M PLALAB 10:01
PROVIDERS: ATTEND Family Medicine
DX: E78.5 Hyperlipidemia, unspecified (principal); N18.30 Chronic kidney disease, stage 3 unspecified; I12.9 Hypertensive chronic kidney disease with stage 1 through stage 4 chronic kidney disease, or unspecified chronic kidney disease; Z79.01 Long term (current) use of anticoagulants; Z79.899 Other long term (current) drug therapy

== ENCOUNTER → 2022-05-30 | Outpatient (CLI) | payer MEDICARE, MEDICAID ==
[2022-05-30 10:59] LABS: BASO # 0.1 10^3/uL (0.0-0.2); BASO % 1.1 % (0.0-1.0); EOS # 0.2 10^3/uL (0.0-0.5); EOS % 2.9 % (0.0-3.0); HEMATOCRIT 40.4 % (36.0-47.0); HEMOGLOBIN 12.9 g/dl (12.0-15.5); LYMPH # 1.3 10^3/uL (1.5-5.0); LYMPH % 15.1 % (24.0-44.0); MEAN CORPUSCULAR HEMOGLOBIN 30.6 pg (27.0-33.0); MEAN CORPUSCULAR HGB CONC 31.9 g/dl (32.0-36.5); MONO # 0.7 10^3/uL (0.0-0.8); MONO % 8.7 % (2.0-8.0); NEUTROPHILS % 71.7 % (36.0-66.0); PLATELET COUNT, AUTOMATED 211 10^3/uL (150-450); RED BLOOD COUNT 4.21 10^6/uL (4.00-5.40); WHITE BLOOD COUNT 8.3 10^3/uL (4.0-10.0)
[2022-05-30 11:27] LABS: HEMOGLOBIN A1c 6.4 % (4.0-6.0)
[2022-05-30 11:29] LABS: ALBUMIN 3.6 G/DL (3.2-5.2); BILIRUBIN,TOTAL 0.4 MG/DL (0.3-1.2); CALCIUM LEVEL 9.6 MG/DL (8.3-10.6); CREATININE FOR GFR 1.33 MG/DL (0.55-1.30); GLOMERULAR FILTRATION RATE 42.8 (>45); POTASSIUM SERUM 4.7 MMOL/L (3.5-5.1); TOTAL PROTEIN 6.3 G/DL (5.7-8.2)
[2022-05-30 11:31] LABS: FREE T4 1.67 NG/DL (0.89-1.76)
[2022-05-30 11:32] LABS: FERRITIN 207.6 NG/ML (7.3-270.7); THYROID STIMULATING HORMONE 4.822 uIU/ML (0.55-4.78)
[2022-05-30 11:40] LABS: INR 1.8; PROTHROMBIN TIME 21.2 SECONDS (12.5-14.5)
== END ==
LOC: M PLALAB 08:16
PROVIDERS: ATTEND Family Medicine
DX: I50.32 Chronic diastolic (congestive) heart failure (principal); E11.8 Type 2 diabetes mellitus with unspecified complications; E03.9 Hypothyroidism, unspecified; I82.409 Acute embolism and thrombosis of unspecified deep veins of unspecified lower extremity

== ENCOUNTER → 2022-06-02 | Outpatient (CLI) | payer MEDICARE, MEDICAID | LOC: M WHC 09:27 | PROVIDERS: ATTEND Obstetrics & Gynecology | DX: Z12.31 Encounter for screening mammogram for malignant neoplasm of breast (principal); Z53.8 Procedure and treatment not carried out for other reasons ==

== ENCOUNTER → 2022-06-02 | Outpatient (REF) | payer MEDICARE, MEDICAID | LOC: M SFHCWAGY 17:20 | PROVIDERS: ATTEND Obstetrics & Gynecology | DX: Z12.4 Encounter for screening for malignant neoplasm of cervix (principal) | CPT/HCPCS: 87624; G0123 ==

== ENCOUNTER → 2022-07-14 | Outpatient (CLI) | payer MEDICARE, MEDICAID ==
[~2022-07-14] MED LIST changes: +TIMO0.5S20 OU; -TIMO0.5S29 OU
== END ==
LOC: M SOG 08:20
PROVIDERS: ATTEND Orthopaedic Surgery
DX: M25.562 Pain in left knee (principal); M25.561 Pain in right knee

== ENCOUNTER → 2022-07-17 | Outpatient (CLI) | payer MEDICARE, MEDICAID | LOC: M WHC 10:31 | PROVIDERS: ATTEND Family Medicine | DX: Z12.31 Encounter for screening mammogram for malignant neoplasm of breast (principal) ==

== ENCOUNTER → 2022-08-31 | Outpatient (REF) | payer MEDICARE, MEDICAID | LOC: M SFHCPLAZ 15:11 | PROVIDERS: ATTEND Family Medicine | DX: Z79.01 Long term (current) use of anticoagulants (principal) ==

== ENCOUNTER → 2022-09-26 | Outpatient (CLI) | payer MEDICARE, MEDICAID | LOC: M WHC 09:00 | PROVIDERS: ATTEND Family Medicine | DX: M85.88 Other specified disorders of bone density and structure, other site (principal); E11.8 Type 2 diabetes mellitus with unspecified complications; I50.32 Chronic diastolic (congestive) heart failure; E03.9 Hypothyroidism, unspecified; D50.9 Iron deficiency anemia, unspecified; I82.409 Acute embolism and thrombosis of unspecified deep veins of unspecified lower extremity; E55.9 Vitamin D deficiency, unspecified; Z79.01 Long term (current) use of anticoagulants; Z79.899 Other long term (current) drug therapy ==

== ENCOUNTER 2023-01-10 11:20 | Day surgery (SDC) | payer MEDICARE, MEDICAID ==
[~2023-01-10] VITALS: Ht 160 cm; Wt 122.5 kg
[~2023-01-10 11:20] MED LIST changes: +FLUT50SP17; +FURO20TA2; -KETO0.3S OD; +KETO0.3S OU; +LEVO125T4; +NS 1,000 ML IV ONE; +SIMV20TA22; +TRUL0.5I; +WARF-23
[2023-01-10] MEDS ORDERED: propofoL 200 MG/20 ML VIAL As Ordered ONE ×3 (14:05→14:28)
[2023-01-10 15:47] VITALS: BP 123/76; TEMP 96.3; O2SAT 97
== END 2023-01-10 15:51 | disposition home or self-care (01) ==
LOC: M OPP 11:20
PROVIDERS: ATTEND Internal Medicine Gastroenterology
DX: Z12.11 Encounter for screening for malignant neoplasm of colon (principal); D12.3 Benign neoplasm of transverse colon; D12.8 Benign neoplasm of rectum; K64.0 First degree hemorrhoids; K57.30 Diverticulosis of large intestine without perforation or abscess without bleeding; Z86.010 Personal history of colon polyps; Z80.0 Family history of malignant neoplasm of digestive organs; I34.1 Nonrheumatic mitral (valve) prolapse; E10.40 Type 1 diabetes mellitus with diabetic neuropathy, unspecified; I11.0 Hypertensive heart disease with heart failure; I50.9 Heart failure, unspecified; E03.9 Hypothyroidism, unspecified; Z79.4 Long term (current) use of insulin; Z79.899 Other long term (current) drug therapy; Z88.8 Allergy status to other drugs, medicaments and biological substances; Z88.2 Allergy status to sulfonamides

== ENCOUNTER → 2023-01-11 | Outpatient (CLI) | payer MEDICARE, MEDICAID ==
[~2023-01-11] MED LIST changes: -NS 1,000 ML IV ONE
[2023-01-11 12:12] LABS: BASO # 0.1 10^3/uL (0.0-0.2); EOS # 0.3 10^3/uL (0.0-0.5); EOS % 3.2 % (0.0-3.0); HEMATOCRIT 39.8 % (36.0-47.0); HEMOGLOBIN 12.9 g/dl (12.0-15.5); LYMPH # 1.3 10^3/uL (1.5-5.0); MEAN CORPUSCULAR HEMOGLOBIN 30.6 pg (27.0-33.0); MEAN CORPUSCULAR HGB CONC 32.4 g/dl (32.0-36.5); MEAN CORPUSCULAR VOLUME 94.5 fl (80.0-96.0); MONO # 0.8 10^3/uL (0.0-0.8); NEUTROPHILS # 6.2 10^3/uL (1.5-8.5); NEUTROPHILS % 71.6 % (36.0-66.0); PLATELET COUNT, AUTOMATED 214 10^3/uL (150-450); RED BLOOD COUNT 4.21 10^6/uL (4.00-5.40); WHITE BLOOD COUNT 8.6 10^3/uL (4.0-10.0)
[2023-01-11 12:28] LABS: INR 1.28; PROTHROMBIN TIME 15.6 SECONDS (12.5-14.5)
== END ==
LOC: M PLALAB 08:25
PROVIDERS: ATTEND Physician Assistant Medical
DX: R71.0 Precipitous drop in hematocrit (principal); Z51.81 Encounter for therapeutic drug level monitoring

== ENCOUNTER → 2023-01-29 | Outpatient (CLI) | payer MEDICARE, MEDICAID ==
[2023-01-29 10:58] LABS: BASO # 0.1 10^3/uL (0.0-0.2); BASO % 1.1 % (0.0-1.0); EOS # 0.3 10^3/uL (0.0-0.5); HEMATOCRIT 39.9 % (36.0-47.0); HEMOGLOBIN 13.2 g/dl (12.0-15.5); LYMPH # 1.3 10^3/uL (1.5-5.0); LYMPH % 15.4 % (24.0-44.0); MEAN CORPUSCULAR HGB CONC 33.1 g/dl (32.0-36.5); MEAN CORPUSCULAR VOLUME 93.7 fl (80.0-96.0); MONO # 0.6 10^3/uL (0.0-0.8); MONO % 7.3 % (2.0-8.0); NEUTROPHILS % 72.8 % (36.0-66.0); PLATELET COUNT, AUTOMATED 202 10^3/uL (150-450); RED BLOOD COUNT 4.26 10^6/uL (4.00-5.40); WHITE BLOOD COUNT 8.3 10^3/uL (4.0-10.0)
[2023-01-29 11:09] LABS: HEMOGLOBIN A1c 6.4 % (4.0-6.0)
[2023-01-29 11:10] LABS: INR 2.1; PROTHROMBIN TIME 22.8 SECONDS (12.5-14.5)
[2023-01-29 11:29] LABS: ALBUMIN 3.7 G/DL (3.2-5.2); BILIRUBIN,TOTAL 0.6 MG/DL (0.3-1.2); CALCIUM LEVEL 9.4 MG/DL (8.3-10.6); CREATININE FOR GFR 1.28 MG/DL (0.55-1.30); GLOMERULAR FILTRATION RATE 44.7 (>45); POTASSIUM SERUM 4.3 MMOL/L (3.5-5.1); TOTAL PROTEIN 6.7 G/DL (5.7-8.2)
[2023-01-29 11:30] LABS: FERRITIN 208.9 NG/ML (7.3-270.7)
[2023-01-29 11:31] LABS: FREE T4 1.35 NG/DL (0.89-1.76); THYROID STIMULATING HORMONE 2.578 uIU/ML (0.55-4.78)
== END ==
LOC: M PLALAB 08:11
PROVIDERS: ATTEND Physician Assistant Medical
DX: I82.409 Acute embolism and thrombosis of unspecified deep veins of unspecified lower extremity (principal); E03.9 Hypothyroidism, unspecified; E11.8 Type 2 diabetes mellitus with unspecified complications; R71.0 Precipitous drop in hematocrit

== ENCOUNTER → 2023-01-30 | Outpatient (REF) | payer MEDICARE, MEDICAID | LOC: M SFHCPLAZ 11:45 | PROVIDERS: ATTEND Family Medicine | DX: D50.9 Iron deficiency anemia, unspecified (principal); E55.9 Vitamin D deficiency, unspecified; E78.5 Hyperlipidemia, unspecified; I50.32 Chronic diastolic (congestive) heart failure; I82.409 Acute embolism and thrombosis of unspecified deep veins of unspecified lower extremity ==

== ENCOUNTER → 2023-02-27 | Outpatient (REF) | payer MEDICARE, MEDICAID ==
[~2023-02-27] MED LIST changes: -FLUT50SP17; +FLUTISP
== END ==
LOC: M SFHCPLAZ 16:06
PROVIDERS: ATTEND Family Medicine
DX: D50.9 Iron deficiency anemia, unspecified (principal); Z51.81 Encounter for therapeutic drug level monitoring; E55.9 Vitamin D deficiency, unspecified; E78.5 Hyperlipidemia, unspecified

== ENCOUNTER → 2023-05-31 | Outpatient (CLI) | payer MEDICARE, MEDICAID ==
[~2023-05-31] MED LIST changes: +RISP-105 PO; -RISP-8 PO
[2023-05-31 09:03] LABS: HEMOGLOBIN A1c 6.1 % (4.0-6.0)
== END ==
LOC: M LAB 07:52
PROVIDERS: ATTEND Physician Assistant Medical
DX: E11.9 Type 2 diabetes mellitus without complications (principal)

== ENCOUNTER → 2023-05-31 | Outpatient (CLI) | payer MEDICARE, MEDICAID ==
[2023-05-31 08:37] LABS: BASO # 0.1 10^3/uL (0.0-0.2); BASO % 1.3 % (0.0-1.0); EOS # 0.2 10^3/uL (0.0-0.5); EOS % 3.2 % (0.0-3.0); HEMATOCRIT 37.6 % (36.0-47.0); HEMOGLOBIN 12.3 g/dl (12.0-15.5); LYMPH # 1.3 10^3/uL (1.5-5.0); LYMPH % 16.9 % (24.0-44.0); MEAN CORPUSCULAR HEMOGLOBIN 31.5 pg (27.0-33.0); MEAN CORPUSCULAR HGB CONC 32.7 g/dl (32.0-36.5); MEAN CORPUSCULAR VOLUME 96.2 fl (80.0-96.0); MONO # 0.6 10^3/uL (0.0-0.8); MONO % 7.4 % (2.0-8.0); NEUTROPHILS # 5.3 10^3/uL (1.5-8.5); NEUTROPHILS % 70.8 % (36.0-66.0); PLATELET COUNT, AUTOMATED 212 10^3/uL (150-450); RED BLOOD COUNT 3.91 10^6/uL (4.00-5.40); WHITE BLOOD COUNT 7.5 10^3/uL (4.0-10.0)
[2023-05-31 09:06] LABS: ALBUMIN 3.5 G/DL (3.2-5.2); BILIRUBIN,TOTAL 0.3 MG/DL (0.3-1.2); CHOLESTEROL RISK RATIO 2.32 (<5); CREATININE FOR GFR 1.33 MG/DL (0.55-1.30); GLOMERULAR FILTRATION RATE 42.6 (>45); HDL CHOLESTEROL 55.6 MG/DL (>40); LDL CHOLESTEROL 64.4 MG/DL (<100); NON-HDL-C 73.4 MG/DL; PERCENT SATURATION 15.5 % (13.2-45.0); POTASSIUM SERUM 4.4 MMOL/L (3.5-5.1); TOTAL 25(OH) VITAMIN D 67.7 NG/ML (20.0-100.0); TOTAL PROTEIN 6.1 G/DL (5.7-8.2)
[2023-05-31 09:18] LABS: PTH INTACT 56.1 PG/ML (18.5-88.0)
== END ==
LOC: M LAB 07:56
PROVIDERS: ATTEND Family Medicine
DX: D50.9 Iron deficiency anemia, unspecified (principal); E55.9 Vitamin D deficiency, unspecified; E78.5 Hyperlipidemia, unspecified; Z79.899 Other long term (current) drug therapy

== ENCOUNTER → 2023-06-25 | Outpatient (CLI) | payer MEDICARE, MEDICAID | LOC: M WHC 14:46 | PROVIDERS: ATTEND Family Medicine | DX: Z12.39 Encounter for other screening for malignant neoplasm of breast (principal) ==

== ENCOUNTER → 2023-07-19 | Outpatient (CLI) | payer MEDICARE, MEDICAID | LOC: M WHC 10:54 | PROVIDERS: ATTEND Family Medicine | DX: Z12.31 Encounter for screening mammogram for malignant neoplasm of breast (principal) ==

== ENCOUNTER → 2023-09-17 | Outpatient (CLI) | payer MEDICARE, MEDICAID ==
[~2023-09-17] MED LIST changes: +FLUO-365 PO; -FLUO20CA22 PO
[2023-09-17 10:38] LABS: BASO # 0.1 10^3/uL (0.0-0.2); BASO % 1.3 % (0.0-1.0); EOS # 0.2 10^3/uL (0.0-0.5); EOS % 2.8 % (0.0-3.0); HEMATOCRIT 40.7 % (36.0-47.0); HEMOGLOBIN 12.9 g/dl (12.0-15.5); LYMPH # 1.4 10^3/uL (1.5-5.0); LYMPH % 20.2 % (24.0-44.0); MEAN CORPUSCULAR HEMOGLOBIN 30.1 pg (27.0-33.0); MEAN CORPUSCULAR HGB CONC 31.7 g/dl (32.0-36.5); MEAN CORPUSCULAR VOLUME 94.9 fl (80.0-96.0); MONO # 0.5 10^3/uL (0.0-0.8); MONO % 7.4 % (2.0-8.0); NEUTROPHILS # 4.7 10^3/uL (1.5-8.5); PLATELET COUNT, AUTOMATED 216 10^3/uL (150-450); RED BLOOD COUNT 4.29 10^6/uL (4.00-5.40); WHITE BLOOD COUNT 6.9 10^3/uL (4.0-10.0)
[2023-09-17 10:51] LABS: INR 2.64; PROTHROMBIN TIME 27.2 SECONDS (12.5-14.5)
[2023-09-17 11:11] LABS: CREATININE, URINE 43.3 MG/DL; MALB URINE SIEMENS < 3.0 MG/L; MAU/CREAT RATIO 6.9 MCG/MG (0.0-30.0)
[2023-09-17 11:15] LABS: ALBUMIN 3.7 G/DL (3.2-5.2); BILIRUBIN,TOTAL 0.4 MG/DL (0.3-1.2); CALCIUM LEVEL 9.1 MG/DL (8.3-10.6); CREATININE FOR GFR 1.39 MG/DL (0.55-1.30); GLOMERULAR FILTRATION RATE 40.5 (>45); POTASSIUM SERUM 4.7 MMOL/L (3.5-5.1); TOTAL PROTEIN 6.3 G/DL (5.7-8.2)
[2023-09-17 11:16] LABS: FREE T4 1.3 NG/DL (0.89-1.76)
[2023-09-17 11:17] LABS: THYROID STIMULATING HORMONE 1.421 uIU/ML (0.55-4.78)
== END ==
LOC: M PLALAB 08:58
PROVIDERS: ATTEND Family Medicine
DX: D50.9 Iron deficiency anemia, unspecified (principal); E55.9 Vitamin D deficiency, unspecified; I82.409 Acute embolism and thrombosis of unspecified deep veins of unspecified lower extremity; I50.32 Chronic diastolic (congestive) heart failure; E03.9 Hypothyroidism, unspecified; E11.8 Type 2 diabetes mellitus with unspecified complications

== ENCOUNTER 2023-10-05 17:49 | Emergency (ER) | payer MEDICARE, MEDICAID ==
[~2023-10-05] VITALS: Ht 160 cm; Wt 126.8 kg
[2023-10-05 22:53] VITALS: BP 185/76; TEMP 97.9; O2SAT 99
[2023-10-06] MEDS ORDERED: HYDR-3713 PO (02:32)
[2023-10-06] MEDS ORDERED: MIRA3350 PO (02:32)
[2023-10-06] MEDS: NORCO, ANEXSIA 5/325MG TABLET (HYDROcodone/ACETAMINOPHEN) PO ONE (02:40)
== END 2023-10-06 02:59 | disposition home or self-care (01) ==
LOC: M ED 17:49
DX: S42.301A Unspecified fracture of shaft of humerus, right arm, initial encounter for closed fracture (principal); Y92.019 Unspecified place in single-family (private) house as the place of occurrence of the external cause; Y93.9 Activity, unspecified; Y99.9 Unspecified external cause status; W10.8XXA Fall (on) (from) other stairs and steps, initial encounter; Z88.2 Allergy status to sulfonamides; Z88.8 Allergy status to other drugs, medicaments and biological substances; Z79.1 Long term (current) use of non-steroidal anti-inflammatories (NSAID); Z79.4 Long term (current) use of insulin; Z79.899 Other long term (current) drug therapy

== ENCOUNTER → 2023-10-22 | Outpatient (REF) | payer MEDICARE, MEDICAID ==
[~2023-10-22] MED LIST changes: +HYDR-3713 PO; +MIRA3350 PO
[2023-10-22 17:11] LABS: BASO # 0.1 10^3/uL (0.0-0.2); BASO % 0.8 % (0.0-1.0); EOS # 0.1 10^3/uL (0.0-0.5); EOS % 1.4 % (0.0-3.0); HEMATOCRIT 33.9 % (36.0-47.0); LYMPH # 1.5 10^3/uL (1.5-5.0); LYMPH % 16.2 % (24.0-44.0); MEAN CORPUSCULAR HEMOGLOBIN 30.4 pg (27.0-33.0); MEAN CORPUSCULAR HGB CONC 32.4 g/dl (32.0-36.5); MEAN CORPUSCULAR VOLUME 93.6 fl (80.0-96.0); MONO # 0.7 10^3/uL (0.0-0.8); MONO % 8.2 % (2.0-8.0); NEUTROPHILS # 6.6 10^3/uL (1.5-8.5); NEUTROPHILS % 73.1 % (36.0-66.0); PLATELET COUNT, AUTOMATED 300 10^3/uL (150-450); RED BLOOD COUNT 3.62 10^6/uL (4.00-5.40)
[2023-10-22 17:33] LABS: INR 3.73; PROTHROMBIN TIME 35.5 SECONDS (12.5-14.5)
[2023-10-22 17:36] LABS: ALBUMIN 3.7 G/DL (3.2-5.2); BILIRUBIN,TOTAL 0.8 MG/DL (0.3-1.2); CALCIUM LEVEL 9.3 MG/DL (8.3-10.6); CREATININE FOR GFR 1.15 MG/DL (0.55-1.30); GLOMERULAR FILTRATION RATE 50.4 (>45); POTASSIUM SERUM 4.5 MMOL/L (3.5-5.1); TOTAL PROTEIN 6.8 G/DL (5.7-8.2)
[2023-10-22 17:37] LABS: FERRITIN 328.1 NG/ML (7.3-270.7)
[2023-10-22 17:51] LABS: HEMOGLOBIN A1c 6.4 % (4.0-6.0)
== END ==
LOC: M SFHCPLAZ 15:39
PROVIDERS: ATTEND Family Medicine
DX: D50.9 Iron deficiency anemia, unspecified (principal); E55.9 Vitamin D deficiency, unspecified; I50.32 Chronic diastolic (congestive) heart failure; E11.8 Type 2 diabetes mellitus with unspecified complications; I82.409 Acute embolism and thrombosis of unspecified deep veins of unspecified lower extremity

== ENCOUNTER → 2023-10-26 | Outpatient (CLI) | payer MEDICARE, MEDICAID | LOC: M SOG 07:55 | PROVIDERS: ATTEND Physician Assistant | DX: M25.511 Pain in right shoulder (principal); S42.251D Displaced fracture of greater tuberosity of right humerus, subsequent encounter for fracture with routine healing; S42.211D Unspecified displaced fracture of surgical neck of right humerus, subsequent encounter for fracture with routine healing; M19.011 Primary osteoarthritis, right shoulder ==

== ENCOUNTER → 2023-11-26 | Outpatient (CLI) | payer MEDICARE, MEDICAID | LOC: M SOG 13:14 | PROVIDERS: ATTEND Physician Assistant | DX: M25.511 Pain in right shoulder (principal); S42.231D 3-part fracture of surgical neck of right humerus, subsequent encounter for fracture with routine healing; M19.011 Primary osteoarthritis, right shoulder ==

== ENCOUNTER → 2023-12-24 | Outpatient (CLI) | payer MEDICARE, MEDICAID ==
[2023-12-24 11:19] LABS: BASO # 0.1 10^3/uL (0.0-0.2); EOS # 0.2 10^3/uL (0.0-0.5); EOS % 1.9 % (0.0-3.0); HEMATOCRIT 41.6 % (36.0-47.0); HEMOGLOBIN 13.3 g/dl (12.0-15.5); LYMPH % 13.4 % (24.0-44.0); MEAN CORPUSCULAR HEMOGLOBIN 30.4 pg (27.0-33.0); MONO # 0.5 10^3/uL (0.0-0.8); MONO % 6.2 % (2.0-8.0); NEUTROPHILS # 5.9 10^3/uL (1.5-8.5); NEUTROPHILS % 77.1 % (36.0-66.0); PLATELET COUNT, AUTOMATED 214 10^3/uL (150-450); RED BLOOD COUNT 4.38 10^6/uL (4.00-5.40); WHITE BLOOD COUNT 7.7 10^3/uL (4.0-10.0)
[2023-12-24 11:41] LABS: FERRITIN 235.3 NG/ML (7.3-270.7)
[2023-12-24 11:42] LABS: BILIRUBIN,TOTAL 0.5 MG/DL (0.3-1.2); CALCIUM LEVEL 10.6 MG/DL (8.3-10.6); CHOLESTEROL RISK RATIO 2.35 (<5); CREATININE FOR GFR 1.21 MG/DL (0.55-1.30); GLOMERULAR FILTRATION RATE 47.5 (>45); HDL CHOLESTEROL 63.4 MG/DL (>40); LDL CHOLESTEROL 68.4 MG/DL (<100); NON-HDL-C 85.6 MG/DL; POTASSIUM SERUM 4.6 MMOL/L (3.5-5.1); TOTAL PROTEIN 7.2 G/DL (5.7-8.2)
[2023-12-24 11:43] LABS: HEMOGLOBIN A1c 6.1 % (4.0-6.0)
== END ==
LOC: M PLALAB 09:00
PROVIDERS: ATTEND Family Medicine
DX: D50.9 Iron deficiency anemia, unspecified (principal); E55.9 Vitamin D deficiency, unspecified; I50.32 Chronic diastolic (congestive) heart failure; E11.8 Type 2 diabetes mellitus with unspecified complications

== ENCOUNTER 2024-01-14 13:36 | Outpatient (RCR) | payer MEDICARE, MEDICAID ==
[~2024-01-14 13:36] MED LIST changes: +NYST1POW3 TOP; -NYST1POW9 TOP; -POTA10808 PO; +POTA10809 PO
== END 2024-02-09 ==
LOC: M PT 13:36
PROVIDERS: ATTEND Physician Assistant
DX: S42.201D Unspecified fracture of upper end of right humerus, subsequent encounter for fracture with routine healing (principal)

== ENCOUNTER → 2024-02-05 | Outpatient (CLI) | payer MEDICARE, MEDICAID | LOC: M SOG 07:58 | PROVIDERS: ATTEND Physician Assistant | DX: S42.201D Unspecified fracture of upper end of right humerus, subsequent encounter for fracture with routine healing (principal) ==

== ENCOUNTER → 2024-04-29 | Outpatient (REF) | payer MEDICARE, MEDICAID | LOC: M SFHCPLAZ 12:30 | PROVIDERS: ATTEND Physician Assistant Medical | DX: J06.9 Acute upper respiratory infection, unspecified (principal) ==

== ENCOUNTER → 2024-05-05 | Outpatient (CLI) | payer MEDICARE, MEDICAID | LOC: M SOG 14:49 | PROVIDERS: ATTEND Physician Assistant | DX: S42.201D Unspecified fracture of upper end of right humerus, subsequent encounter for fracture with routine healing (principal) ==

== ENCOUNTER → 2024-05-19 | Outpatient (CLI) | payer MEDICARE, MEDICAID ==
[~2024-05-19] MED LIST changes: +DENO60SY2 SC; -PROL60SO SC
[2024-05-19 12:46] LABS: BASO # 0.1 10^3/uL (0.0-0.2); BASO % 1.2 % (0.0-1.0); EOS # 0.2 10^3/uL (0.0-0.5); EOS % 2.5 % (0.0-3.0); HEMATOCRIT 41.4 % (36.0-47.0); HEMOGLOBIN 13.4 g/dl (12.0-15.5); LYMPH # 1.2 10^3/uL (1.5-5.0); MEAN CORPUSCULAR HEMOGLOBIN 31.3 pg (27.0-33.0); MEAN CORPUSCULAR HGB CONC 32.4 g/dl (32.0-36.5); MEAN CORPUSCULAR VOLUME 96.7 fl (80.0-96.0); MONO # 0.3 10^3/uL (0.0-0.8); MONO % 4.6 % (2.0-8.0); NEUTROPHILS % 74.4 % (36.0-66.0); PLATELET COUNT, AUTOMATED 216 10^3/uL (150-450); RED BLOOD COUNT 4.28 10^6/uL (4.00-5.40); WHITE BLOOD COUNT 6.8 10^3/uL (4.0-10.0)
[2024-05-19 12:57] LABS: INR 2.16; PROTHROMBIN TIME 24.2 SECONDS (12.5-14.5)
[2024-05-19 13:14] LABS: HEMOGLOBIN A1c 5.6 % (4.0-6.0)
[2024-05-19 13:16] LABS: ALBUMIN 3.9 G/DL (3.2-5.2); BILIRUBIN,TOTAL 0.5 MG/DL (0.3-1.2); CALCIUM LEVEL 9.9 MG/DL (8.3-10.6); CHOLESTEROL RISK RATIO 2.32 (<5); CREATININE FOR GFR 1.12 MG/DL (0.55-1.30); GLOMERULAR FILTRATION RATE 51.8 (>45); LDL CHOLESTEROL 71.2 MG/DL (<100); POTASSIUM SERUM 4.5 MMOL/L (3.5-5.1); PTH INTACT 42.1 PG/ML (18.5-88.0); TOTAL PROTEIN 7.1 G/DL (5.7-8.2)
[2024-05-19 13:17] LABS: FERRITIN 229.7 NG/ML (7.3-270.7); THYROID STIMULATING HORMONE 4.092 uIU/ML (0.55-4.78); TOTAL 25(OH) VITAMIN D 68.3 NG/ML (20.0-100.0)
[2024-05-19 13:18] LABS: FREE T4 1.34 NG/DL (0.89-1.76)
== END ==
LOC: M PLALAB 10:12
PROVIDERS: ATTEND Physician Assistant Medical
DX: D50.9 Iron deficiency anemia, unspecified (principal); E11.9 Type 2 diabetes mellitus without complications; I10 Essential (primary) hypertension; E78.5 Hyperlipidemia, unspecified; E55.9 Vitamin D deficiency, unspecified; E03.9 Hypothyroidism, unspecified; I82.409 Acute embolism and thrombosis of unspecified deep veins of unspecified lower extremity; K08.89 Other specified disorders of teeth and supporting structures

== ENCOUNTER → 2024-06-20 | Outpatient (CLI) | payer MEDICARE, MEDICAID ==
[2024-06-20 10:28] LABS: INR 2.47; PROTHROMBIN TIME 26.8 SECONDS (12.5-14.5)
== END ==
LOC: M PLALAB 08:12
PROVIDERS: ATTEND Family Medicine
DX: Z51.81 Encounter for therapeutic drug level monitoring (principal)

== ENCOUNTER → 2024-07-21 | Outpatient (CLI) | payer MEDICARE, MEDICAID ==
[~2024-07-21] MED LIST changes: -NYST-13 EXT; +NYST0.1C EXT
== END ==
LOC: M WHC 08:48
PROVIDERS: ATTEND Family Medicine
DX: Z12.31 Encounter for screening mammogram for malignant neoplasm of breast (principal); R92.323 Mammographic fibroglandular density, bilateral breasts

== ENCOUNTER → 2024-09-18 | Outpatient (CLI) | payer MEDICARE, MEDICAID ==
[2024-09-18 10:12] LABS: INR 1.78
== END ==
LOC: M PLALAB 08:17
PROVIDERS: ATTEND Family Medicine
DX: I82.409 Acute embolism and thrombosis of unspecified deep veins of unspecified lower extremity (principal)

== ENCOUNTER → 2024-10-06 | Outpatient (CLI) | payer MEDICARE, MEDICAID ==
[2024-10-06 10:07] LABS: BASO # 0.1 10^3/uL (0.0-0.2); BASO % 1.1 % (0.0-1.0); EOS # 0.3 10^3/uL (0.0-0.5); EOS % 4.3 % (0.0-3.0); LYMPH # 1.2 10^3/uL (1.5-5.0); LYMPH % 18.6 % (24.0-44.0); MONO # 0.5 10^3/uL (0.0-0.8); MONO % 8.0 % (2.0-8.0); NEUTROPHILS # 4.2 10^3/uL (1.5-8.5); NEUTROPHILS % 67.5 % (36.0-66.0); PLATELET COUNT, AUTOMATED 195 10^3/uL (150-450)
[2024-10-06 10:29] LABS: CPK CREATINE PHOSPHOKINASE 133.0 U/L (34-145)
[2024-10-06 10:30] LABS: ALT/SGPT 20.0 U/L (7.0-40); AST/SGOT 23.0 U/L (<34); CALCIUM LEVEL 9.2 MG/DL (8.3-10.6); CARBON DIOXIDE LEVEL 28.0 MMOL/L (20-31); CHLORIDE LEVEL 101.0 MMOL/L (98-107); CHOLESTEROL LEVEL 134.0 MG/DL (<200); CHOLESTEROL RISK RATIO 2.57 (<5); CREATININE FOR GFR 1.25 MG/DL (0.55-1.30); GLOMERULAR FILTRATION RATE 47.5 (>45); LDL CHOLESTEROL 60.2 MG/DL (<100); MAGNESIUM LEVEL 1.7 MG/DL (1.8-2.4); NON-HDL-C 82.0 MG/DL; POTASSIUM SERUM 4.5 MMOL/L (3.5-5.1); SODIUM LEVEL 142.0 MMOL/L (136-145); TRIGLYCERIDES LEVEL 109.0 MG/DL (<150)
[2024-10-06 10:35] LABS: ESTIMATED AVERAGE GLUCOSE 140.0 MG/DL (60-110)
[2024-10-06 10:43] LABS: INR 1.24
== END ==
LOC: M PLALAB 08:06
PROVIDERS: ATTEND Family Medicine
DX: D50.9 Iron deficiency anemia, unspecified (principal); I50.32 Chronic diastolic (congestive) heart failure; E78.5 Hyperlipidemia, unspecified; E11.8 Type 2 diabetes mellitus with unspecified complications; I82.409 Acute embolism and thrombosis of unspecified deep veins of unspecified lower extremity

== ENCOUNTER → 2024-11-27 | Outpatient (CLI) | payer MEDICARE, MEDICAID ==
[2024-11-27 10:21] LABS: INR 2.31
== END ==
LOC: M PLALAB 08:14
PROVIDERS: ATTEND Family Medicine
DX: K74.00 Hepatic fibrosis, unspecified (principal); Z79.01 Long term (current) use of anticoagulants

== ENCOUNTER → 2025-01-22 | Outpatient (CLI) | payer MEDICARE, MEDICAID ==
[2025-01-22 10:08] LABS: BASO # 0.1 10^3/uL (0.0-0.2); BASO % 1.0 % (0.0-1.0); EOS # 0.3 10^3/uL (0.0-0.5); EOS % 3.4 % (0.0-3.0); LYMPH # 1.4 10^3/uL (1.5-5.0); LYMPH % 17.9 % (24.0-44.0); MONO # 0.5 10^3/uL (0.0-0.8); MONO % 5.7 % (2.0-8.0); NEUTROPHILS # 5.7 10^3/uL (1.5-8.5); NEUTROPHILS % 71.7 % (36.0-66.0); PLATELET COUNT, AUTOMATED 220 10^3/uL (150-450)
[2025-01-22 10:26] LABS: INR 2.99
[2025-01-22 10:44] LABS: ALT/SGPT 15.0 U/L (7.0-40); AST/SGOT 22.0 U/L (<34); CALCIUM LEVEL 9.4 MG/DL (8.3-10.6); CARBON DIOXIDE LEVEL 29.0 MMOL/L (20-31); CHLORIDE LEVEL 101.0 MMOL/L (98-107); CPK CREATINE PHOSPHOKINASE 121.0 U/L (34-145); CREATININE FOR GFR 1.35 MG/DL (0.55-1.30); GLOMERULAR FILTRATION RATE 43.3 (>45); MAGNESIUM LEVEL 1.9 MG/DL (1.8-2.4); POTASSIUM SERUM 4.1 MMOL/L (3.5-5.1); SODIUM LEVEL 140.0 MMOL/L (136-145)
[2025-01-22 10:48] LABS: ESTIMATED AVERAGE GLUCOSE 143.0 MG/DL (60-110)
== END ==
LOC: M PLALAB 08:10
PROVIDERS: ATTEND Family Medicine
DX: E78.5 Hyperlipidemia, unspecified (principal); D50.9 Iron deficiency anemia, unspecified; I50.32 Chronic diastolic (congestive) heart failure; I82.409 Acute embolism and thrombosis of unspecified deep veins of unspecified lower extremity

== ENCOUNTER → 2025-02-16 | Outpatient (REF) | payer MEDICARE, MEDICAID ==
[2025-02-16 10:24] LABS: CHOLESTEROL LEVEL 148.0 MG/DL (<200); CHOLESTEROL RISK RATIO 2.2 (<5); LDL CHOLESTEROL 61.7 MG/DL (<100); NON-HDL-C 80.9 MG/DL; TRIGLYCERIDES LEVEL 96.0 MG/DL (<150)
[2025-02-16 10:33] LABS: INR 2.28
== END ==
LOC: M SFHCPLAZ 09:43
PROVIDERS: ATTEND Family Medicine
DX: E78.5 Hyperlipidemia, unspecified (principal); Z79.01 Long term (current) use of anticoagulants